=== PATIENT | male | born 1985 | race African-American/Black ===

== ENCOUNTER 2017-03-25 10:47 | Inpatient (IN) | payer OTHER ==
[~2017-03-25] VITALS: Ht 182.9 cm; Wt 93.3 kg
[2017-03-25] MEDS ORDERED: SODIUM CHLORIDE 0.9% 1,000ML IVBOLUS ONE (11:00)
[2017-03-25] MEDS ORDERED: PANTOPRAZOLE 40 MG IV IVPush ONE (11:00)
[2017-03-25] MEDS ORDERED: ONDANSETRON 2MG/ML, 2ML IVPush ONE (11:00)
[2017-03-25] MEDS ORDERED: SODIUM CHLORIDE FLUSH 10ML SYR IVF ONE (11:00)
[2017-03-25] MEDS ORDERED: LIDOCAINE-MPF 2% ,5ML ONE (11:23)
[2017-03-25] MEDS ORDERED: LORazepam 2 MG/ML, 1ML IVPush ONE (11:30)
[2017-03-25] MEDS ORDERED: LIDOCAINE 2%, 20ML INFIL ONE (11:30)
[2017-03-25] MEDS ORDERED: KETAMINE 10 MG/ML, 20ML ONE (11:46)
[2017-03-25] MEDS ORDERED: KETAMINE 10 MG/ML, 20ML IV ONE (12:00)
[2017-03-25] MEDS ORDERED: ONDANSETRON 2MG/ML, 2ML ONE (12:03)
[2017-03-25] MEDS ORDERED: PANTOPRAZOLE 40 MG IV ONE (12:03)
[2017-03-25 12:12] LABS: HEMATOCRIT 49.5 % (39.2-51.8); HEMOGLOBIN 16.4 g/dL (13.7-18.0); WHITE BLOOD COUNT 18.4 x10^3/uL (3.4-10)
[2017-03-25] MEDS ORDERED: LORazepam 2 MG/ML, 1ML ONE (12:20)
[2017-03-25 12:33] LABS: ASPARTATE AMINO TRANSFERASE 54 U/L (15-37); BLOOD UREA NITROGEN 30 mg/dL (7-18)
[2017-03-25] MEDS ORDERED: ONDANSETRON ODT 4 MG ONE (12:55)
[2017-03-25] MEDS ORDERED: ONDANSETRON ODT 4 MG PO ONE (13:00)
[2017-03-25] MEDS ORDERED: POTASSIUM CHLORIDE 40 MEQ in SODIUM CHLORIDE 0.9% 500 ML IV ONE (14:00)
[2017-03-25] MEDS ORDERED: ONDANSETRON 2MG/ML, 2ML IVPush PRN (15:00)
[2017-03-25] MEDS ORDERED: morphine SULFATE 10 MG/ML, 1ML IVPush PRN (15:00)
[2017-03-25 15:54] LABS: IS PT STATUS REG ER OR PRE ER? YES
[2017-03-25] MEDS ORDERED: PHARMACY MAY ADJ FOR RENAL FX MC PRN (16:30)
[2017-03-25 17:20] VITALS: BP 121/75
[2017-03-25] MEDS ORDERED: PANTOPRAZOLE 80 MG in SODIUM CHLORIDE 0.9% 100 ML IV SCH ×2 (18:00→20:30)
[2017-03-25] MEDS ORDERED: THIAMINE 100 MG in SODIUM CHLORIDE 0.9% 50 ML IV SCH ×2 (18:00→20:30)
[2017-03-25 20:00] VITALS: BP 131/75
[2017-03-25] MEDS: D5%-0.45NACL+KCL 40MEQ 1,000 ML IV SCH (21:37)
[2017-03-25 22:07] LABS: HEMATOCRIT 41.8 % (39.2-51.8); HEMOGLOBIN 13.9 g/dL (13.7-18.0)
[2017-03-25 22:14] LABS: IS PT STATUS REG ER OR PRE ER? NO
[2017-03-26 03:45] VITALS: BP 115/75
[2017-03-26] MEDS: D5%-0.45NACL+KCL 40MEQ 1,000 ML IV SCH ×3 (04:06→21:40)
[2017-03-26 04:28] LABS: BLOOD UREA NITROGEN 20 mg/dL (7-18)
[2017-03-26 04:43] LABS: ASPARTATE AMINO TRANSFERASE 37 U/L (15-37)
[2017-03-26 08:30] VITALS: BP 134/87
[2017-03-26 08:38] LABS: HEMATOCRIT 39.7 % (39.2-51.8); HEMOGLOBIN 13.3 g/dL (13.7-18.0); WHITE BLOOD COUNT 19.1 x10^3/uL (3.4-10)
[2017-03-26] MEDS: PANTOPROZOLE 40MG TABLET PO SCH ×2 (09:48→21:40)
[2017-03-26] MEDS: THIAMINE 100MG TABLET PO SCH (12:06)
[2017-03-26] MEDS: FOLIC ACID 1 MG TABLET PO SCH (12:06)
[2017-03-26] MEDS: AMOXICILLIN 500 MG CAPSULE PO SCH ×2 (12:07→21:39)
[2017-03-26] MEDS: CLARITHROMYCIN 500 MG TABLET PO SCH ×2 (12:07→21:40)
[2017-03-26 12:23] LABS: IS PT STATUS REG ER OR PRE ER? NO
[2017-03-26 14:00] VITALS: BP 107/67
[2017-03-26 16:16] LABS: DAU SCREEN DISCLAIMER
[2017-03-26 20:39] VITALS: BP 121/70
[2017-03-27 01:00] VITALS: BP 128/72
[2017-03-27 03:10] LABS: BLOOD UREA NITROGEN 10 mg/dL (7-18)
[2017-03-27 03:18] LABS: HEMATOCRIT 38.3 % (39.2-51.8); HEMOGLOBIN 12.5 g/dL (13.7-18.0); WHITE BLOOD COUNT 12.6 x10^3/uL (3.4-10)
[2017-03-27 07:02] VITALS: BP 121/75
[2017-03-27] MEDS: D5%-0.45NACL+KCL 40MEQ 1,000 ML IV SCH ×2 (08:19→15:56)
[2017-03-27] MEDS: CLARITHROMYCIN 500 MG TABLET PO SCH ×2 (08:19→21:18)
[2017-03-27] MEDS: THIAMINE 100MG TABLET PO SCH (08:19)
[2017-03-27] MEDS: AMOXICILLIN 500 MG CAPSULE PO SCH ×2 (08:19→21:19)
[2017-03-27] MEDS: FOLIC ACID 1 MG TABLET PO SCH (08:19)
[2017-03-27] MEDS: PANTOPROZOLE 40MG TABLET PO SCH ×2 (10:00→21:18)
[2017-03-27 12:37] VITALS: BP_SYST 130; BP_SYST 94; BP_DIAS 45; BP_DIAS 81
[2017-03-27] MEDS ORDERED: D5%-0.45NACL+KCL 40MEQ 1,000 ML IV SCH (20:00)
[2017-03-27] MEDS ORDERED: PHARMACY MAY ADJ FOR RENAL FX MC PRN (20:30)
[2017-03-27] MEDS ORDERED: ONDANSETRON 2MG/ML, 2ML IVPush PRN (20:30)
[2017-03-27] MEDS ORDERED: morphine SULFATE 10 MG/ML, 1ML IVPush PRN (20:30)
[2017-03-27 21:00] VITALS: BP 116/67
[2017-03-28 03:00] VITALS: BP 128/73
[2017-03-28 05:24] LABS: HEMATOCRIT 42.2 % (39.2-51.8); HEMOGLOBIN 13.8 g/dL (13.7-18.0); WHITE BLOOD COUNT 10.3 x10^3/uL (3.4-10)
[2017-03-28] MEDS ORDERED: CLAR500T PO (08:49)
[2017-03-28] MEDS ORDERED: PANT40TA5 PO (08:49)
[2017-03-28] MEDS ORDERED: AMOX-291 PO (08:49)
[2017-03-28] MEDS ORDERED: THIA100T6 PO (08:49)
[2017-03-28] MEDS ORDERED: FOLI-17 PO (08:49)
[2017-03-28] MEDS ORDERED: FOLIC ACID 1 MG TABLET PO SCH (09:00)
[2017-03-28] MEDS ORDERED: THIAMINE 100MG TABLET PO SCH (09:00)
[2017-03-28] MEDS: CLARITHROMYCIN 500 MG TABLET PO SCH (09:13)
[2017-03-28] MEDS: AMOXICILLIN 500 MG CAPSULE PO SCH (09:13)
[2017-03-28] MEDS: PANTOPROZOLE 40MG TABLET PO SCH (09:14)
[2017-03-28 09:16] VITALS: BP 108/72
== END 2017-03-28 13:00 | disposition home or self-care (01) | DRG 867 ==
LOC: ED 10:54 → EDIP 13:35 → 4WST 17:20 → 3NE 03-26 17:10
PROVIDERS: ADMIT Internal Medicine; ATTEND Internal Medicine
PROC: 02HV33Z Insertion of Infusion Device into Superior Vena Cava, Percutaneous Approach (ICD-10-PCS; principal; 2017-03-25)
PROC: B5181ZA Fluoroscopy of Superior Vena Cava using Low Osmolar Contrast, Guidance (ICD-10-PCS; 2017-03-25)
PROC: B548ZZA Ultrasonography of Superior Vena Cava, Guidance (ICD-10-PCS; 2017-03-25)
DX: B96.81 Helicobacter pylori [H. pylori] as the cause of diseases classified elsewhere (principal); N17.0 Acute kidney failure with tubular necrosis; K22.6 Gastro-esophageal laceration-hemorrhage syndrome; F11.23 Opioid dependence with withdrawal; E87.2 Acidosis; M62.82 Rhabdomyolysis; D72.829 Elevated white blood cell count, unspecified; D75.89 Other specified diseases of blood and blood-forming organs; E86.0 Dehydration; E87.6 Hypokalemia; F12.90 Cannabis use, unspecified, uncomplicated; F17.210 Nicotine dependence, cigarettes, uncomplicated
CPT/HCPCS: 36415; 36569; 70450; 71010; 76700; 76937; 77001; 80048; 80053; 80074; 80307; 81003; 82140; 82550; 83690; 83735; 84100; 84145; 84484; 85014; 85018; 85025; 85610; 85730; 86677; 86850; 86900; 87040; 87521; 93005; 93306; 96361; 96365; 96375; J2405; J3411; J3480; C1751; C9113; J2060; J7030; J7040

== ENCOUNTER 2017-09-29 10:58 | Emergency (ER) | payer MEDICAID, OTHER ==
[~2017-09-29] VITALS: Ht 188 cm; Wt 92.1 kg
[~2017-09-29 10:58] MED LIST: AMOX-291 PO; CLAR500T PO; FOLI-17 PO; PANT40TA5 PO; THIA100T6 PO
[2017-09-29 11:03] VITALS: BP 110/76
== END 2017-09-29 14:47 | disposition home or self-care (01) ==
LOC: ED 14:41
DX: S62.324A Displaced fracture of shaft of fourth metacarpal bone, right hand, initial encounter for closed fracture (principal); S62.316A Displaced fracture of base of fifth metacarpal bone, right hand, initial encounter for closed fracture; E87.6 Hypokalemia; X58.XXXA Exposure to other specified factors, initial encounter; Y93.89 Activity, other specified; Y92.89 Other specified places as the place of occurrence of the external cause; Y99.9 Unspecified external cause status
CPT/HCPCS: 29125; 99284

== ENCOUNTER 2018-02-12 11:14 | Emergency (ER) | payer MEDICAID ==
[~2018-02-12] VITALS: Ht 188 cm; Wt 91.2 kg
[2018-02-12 11:16] VITALS: BP 123/79
[2018-02-12] MEDS ORDERED: CEFTRIAXONE 250 MG IM ONE (12:00)
[2018-02-12] MEDS ORDERED: AZITHROMYCIN 500 MG TABLET PO ONE (12:00)
[2018-02-12] MEDS ORDERED: AZITHROMYCIN 500 MG TABLET ONE (12:09)
[2018-02-12] MEDS ORDERED: CEFTRIAXONE 250 MG ONE (12:09)
[2018-02-12 12:19] LABS: MICROSCOPIC AUTO
[2018-02-12 12:20] LABS: CULTURE INDICATED? YES
== END 2018-02-12 12:45 | disposition home or self-care (01) ==
LOC: ED 11:45
DX: R30.0 Dysuria (principal); A64 Unspecified sexually transmitted disease; R36.9 Urethral discharge, unspecified
CPT/HCPCS: 81001; 87086; 87491; 87591; 96372; 99284; J0696

== ENCOUNTER 2020-03-24 22:18 | Emergency (ER) | payer MEDICAID ==
[~2020-03-24] VITALS: Ht 188 cm; Wt 75.0 kg
[~2020-03-24 22:18] MED LIST changes: +CLAR-14 PO; -CLAR500T PO; -THIA100T6 PO; +THIA100T67 PO
[2020-03-24 23:12] LABS: BASOPHILS # (AUTO) 0.01 x10^3/uL (0-0.1); BASOPHILS % (AUTO) 0 % (0-1); EOSINOPHILS # (AUTO) 0.01 x10^3/uL (0-0.4); EOSINOPHILS % (AUTO) 0 % (1-7); LYMPHOCYTES % (AUTO) 18 % (22-44); MD NO; MEAN CORPUSCULAR HEMOGLOBIN 24.1 pg (27.5-34.5); MEAN CORPUSCULAR HGB CONC 32.1 g/dL (33.2-36.2); MEAN CORPUSCULAR VOLUME 74.9 fL (81-97); MEAN PLATELET VOLUME 7.2 fL (7.4-10.4); MONOCYTES % (AUTO) 4 % (2-9); NEUTROPHILS # (AUTO) 7.01 x10^3/uL (1.8-6.8); NEUTROPHILS % (AUTO) 78 % (42-75); PLATELET COUNT 819 x10^3/uL (130-400); RED BLOOD COUNT 4.63 x10^6/uL (4.38-5.82); RED CELL DISTRIBUTION WIDTH 17.9 % (9.4-14.8)
[2020-03-24 23:13] LABS: ALANINE AMINOTRANSFERASE 18 U/L (12-78); ALBUMIN 3.5 g/dL (3.4-5.0); ANION GAP 6 mmol/L (5-15); CALCIUM 9.3 mg/dL (8.5-10.1); CHLORIDE 95 mmol/L (98-107); CREATININE 0.92 mg/dL (0.7-1.3)
[2020-03-24 23:15] LABS: ALKALINE PHOSPHATASE 72 U/L (45-117); BILIRUBIN,TOTAL 0.4 mg/dL (0.2-1.0)
[2020-03-24] MEDS ORDERED: ONDANSETRON 2MG/ML, 2ML ONE (23:29)
[2020-03-24] MEDS ORDERED: PANTOPRAZOLE 80 MG in SODIUM CHLORIDE 0.9% 50 ML IV ONE (23:30)
[2020-03-24] MEDS ORDERED: SODIUM CHLORIDE 0.9% 1,000ML IVBOLUS ONE (23:30)
[2020-03-24] MEDS ORDERED: ONDANSETRON 2MG/ML, 2ML IVPush ONE (23:30)
[2020-03-25 00:09] LABS: INTERNATIONAL NORMALIZED RATIO 1.08 (0.93-1.1); PROTHROMBIN TIME 11.1 Seconds (9.6-11.5)
[2020-03-25 01:09] VITALS: BP 132/64
== END 2020-03-25 01:28 | disposition home or self-care (01) ==
LOC: ED 03-25 01:04
DX: F15.129 Other stimulant abuse with intoxication, unspecified (principal); F11.129 Opioid abuse with intoxication, unspecified; K92.0 Hematemesis; D62 Acute posthemorrhagic anemia; K59.00 Constipation, unspecified; Z72.9 Problem related to lifestyle, unspecified
CPT/HCPCS: 36415; 80053; 83690; 85025; 85610; 96374; 96375; 99284; C9113; J2405; J7030

== ENCOUNTER 2020-03-25 14:05 | Inpatient (IN) | payer MEDICAID ==
[~2020-03-25] VITALS: Ht 188 cm; Wt 69.4 kg
[2020-03-25] MEDS ORDERED: NALOXONE 0.4 MG/ML, 1ML IVPush ONE (14:30)
[2020-03-25] MEDS ORDERED: SODIUM CHLORIDE 0.9% 1,000ML IVBOLUS ONE (14:30)
[2020-03-25] MEDS ORDERED: SODIUM CHLORIDE FLUSH 10ML SYR IVF ONE (14:30)
[2020-03-25] MEDS ORDERED: NALOXONE 0.4 MG/ML, 1ML ONE (14:34)
[2020-03-25 14:37] LABS: BASOPHILS # (AUTO) 0.05 x10^3/uL (0-0.1); BASOPHILS % (AUTO) 0 % (0-1); EOSINOPHILS # (AUTO) 0.05 x10^3/uL (0-0.4); EOSINOPHILS % (AUTO) 0 % (1-7); LYMPHOCYTES # (AUTO) 4.05 x10^3/uL (1-3.4); LYMPHOCYTES % (AUTO) 32 % (22-44); MD NO; MEAN CORPUSCULAR HGB CONC 31.5 g/dL (33.2-36.2); MEAN CORPUSCULAR VOLUME 76.2 fL (81-97); MEAN PLATELET VOLUME 6.4 fL (7.4-10.4); MONOCYTES # (AUTO) 1.04 x10^3/uL (0.2-0.8); MONOCYTES % (AUTO) 8 % (2-9); NEUTROPHILS # (AUTO) 7.66 x10^3/uL (1.8-6.8); NEUTROPHILS % (AUTO) 60 % (42-75); PLATELET COUNT 750 x10^3/uL (130-400); RED BLOOD COUNT 3.32 x10^6/uL (4.38-5.82); RED CELL DISTRIBUTION WIDTH 18.3 % (9.4-14.8)
[2020-03-25 14:40] LABS: ALANINE AMINOTRANSFERASE 17 U/L (12-78); ALBUMIN 2.8 g/dL (3.4-5.0); ANION GAP 12 mmol/L (5-15); CALCIUM 8.1 mg/dL (8.5-10.1); CHLORIDE 96 mmol/L (98-107); CREATININE 1.87 mg/dL (0.7-1.3)
[2020-03-25 14:43] LABS: ALKALINE PHOSPHATASE 55 U/L (45-117); BILIRUBIN,TOTAL 0.3 mg/dL (0.2-1.0); TOTAL PROTEIN 7.7 g/dL (6.4-8.2)
[2020-03-25] MEDS ORDERED: LACTATED RINGERS 1,000 ML IVBOLUS ONE (15:30)
[2020-03-25] MEDS ORDERED: LORazepam 2 MG/ML, 1ML IVPush PRN (17:00)
[2020-03-25] MEDS ORDERED: DOCUSATE 100 MG CAPSULE PO PRN (17:00)
[2020-03-25] MEDS: SUCRALFATE 1 GM/10 ML UDC PO SCH ×2 (17:00→21:08)
[2020-03-25] MEDS ORDERED: PROMETHAZINE 25 MG/ML, 1ML IM PRN (17:00)
[2020-03-25] MEDS ORDERED: ACETAMINOPHEN 325 MG TABLET PO PRN (17:00)
[2020-03-25] MEDS ORDERED: ONDANSETRON 2MG/ML, 2ML IVPush PRN (17:00)
[2020-03-25] MEDS ORDERED: POLYETHYLENE GLYCOL 17 GM PACKET PO PRN (17:00)
[2020-03-25] MEDS ORDERED: NALOXONE 0.4 MG/ML, 1ML IVPush PRN (17:00)
[2020-03-25] MEDS ORDERED: NICOTINE 21 MG/24 HR PATCH.TD24 TD SCH (17:00)
[2020-03-25] MEDS ORDERED: ONDANSETRON ODT 4 MG PO PRN (17:00)
[2020-03-25] MEDS ORDERED: PANTOPRAZOLE 40 MG IV ONE (17:08)
[2020-03-25] MEDS: PANTOPRAZOLE 40 MG IV IVPush SCH ×2 (17:09→20:57)
[2020-03-25] MEDS: LACTATED RINGERS 1,000 ML IV SCH ×2 (17:09→18:40)
[2020-03-25 17:21] LABS: % IRON SATURATION 5 % (20-55); IRON LEVEL 17 mcg/dL (65-175); TOTAL IRON BINDING CAPACITY 339 mcg/dL (250-450)
[2020-03-25 17:30] LABS: INTERNATIONAL NORMALIZED RATIO 1.12 (0.93-1.1); PROTHROMBIN TIME 11.6 Seconds (9.6-11.5)
[2020-03-25] MEDS ORDERED: POTASSIUM CHLORIDE 20 MEQ TAB.ER.PRT ONE (18:31)
[2020-03-25] MEDS ORDERED: SUCRALFATE 1 GM/10 ML UDC ONE (18:31)
[2020-03-25 18:34] VITALS: BP 119/89
[2020-03-25] MEDS: POTASSIUM CHLORIDE 20 MEQ TAB.ER.PRT PO SCH (18:40)
[2020-03-26 01:42] VITALS: BP 112/83
[2020-03-26 06:33] LABS: ALANINE AMINOTRANSFERASE 11 U/L (12-78); ALBUMIN 2.3 g/dL (3.4-5.0); ANION GAP 5 mmol/L (5-15); CALCIUM 7.2 mg/dL (8.5-10.1); CHLORIDE 100 mmol/L (98-107); CREATININE 0.77 mg/dL (0.7-1.3); IRON LEVEL 14 mcg/dL (65-175)
[2020-03-26 06:36] LABS: % IRON SATURATION 5 % (20-55); ALKALINE PHOSPHATASE 42 U/L (45-117); BILIRUBIN,TOTAL 0.2 mg/dL (0.2-1.0); TOTAL IRON BINDING CAPACITY 257 mcg/dL (250-450); TOTAL PROTEIN 6.3 g/dL (6.4-8.2)
[2020-03-26 06:44] LABS: AMPHETAMINE SCREEN, URINE Positive (Negative); BARBITURATE SCREEN, URINE Negative (Negative); BENZODIAZEPINE SCREEN, URINE Negative (Negative); CANNABINOID SCREEN, URINE Positive (Negative); COCAINE SCREEN, URINE Negative (Negative); METHADONE SCREEN, URINE Negative (Negative); OPIATE SCREEN, URINE Positive (Negative)
[2020-03-26 07:48] VITALS: BP 91/53
[2020-03-26 07:57] LABS: MEAN CORPUSCULAR HEMOGLOBIN 23.7 pg (27.5-34.5); MEAN CORPUSCULAR HGB CONC 30.7 g/dL (33.2-36.2); MEAN CORPUSCULAR VOLUME 77.1 fL (81-97); MEAN PLATELET VOLUME 5.9 fL (7.4-10.4); PLATELET COUNT 510 x10^3/uL (130-400); RED BLOOD COUNT 2.35 x10^6/uL (4.38-5.82)
[2020-03-26] MEDS: SUCRALFATE 1 GM/10 ML UDC PO SCH (08:00)
[2020-03-26] MEDS: PANTOPRAZOLE 40 MG IV IVPush SCH (08:00)
[2020-03-26] MEDS: POTASSIUM CHLORIDE 20 MEQ TAB.ER.PRT PO SCH (08:00)
[2020-03-26] MEDS: LACTATED RINGERS 1,000 ML IV SCH (08:01)
[2020-03-26 08:22] LABS: BASOPHILS # (AUTO) 0.03 x10^3/uL (0-0.1); BASOPHILS % (AUTO) 1 % (0-1); EOSINOPHILS # (AUTO) 0.13 x10^3/uL (0-0.4); EOSINOPHILS % (AUTO) 2 % (1-7); LYMPHOCYTES # (AUTO) 1.77 x10^3/uL (1-3.4); LYMPHOCYTES % (AUTO) 25 % (22-44); MD MORPH REVIEW ONLY; MONOCYTES % (AUTO) 6 % (2-9); NEUTROPHILS # (AUTO) 4.87 x10^3/uL (1.8-6.8); NEUTROPHILS % (AUTO) 68 % (42-75)
[2020-03-26 08:23] LABS: ANISOCYTOSIS 1+; HYPOCHROMIA 2+; MICROCYTOSIS 1+; OVALOCYTES 1+; TEAR DROPS 1+
[2020-03-26 08:24] LABS: <PLATELET ESTIMATE> INCREASED; <PLT MORPHOLOGY> NORMAL PLT MORPH
[2020-03-26] MEDS ORDERED: IRON SUCROSE COMPLEX 100MG/5ML IV SCH (09:00)
[2020-03-26] MEDS ORDERED: MIDAZOLAM 1 MG/ML, 2ML ONE (09:16)
[2020-03-26] MEDS ORDERED: FENTANYL PF 100 MCG/2ML ONE (09:17)
== END 2020-03-26 09:28 | disposition left against medical advice (07) | DRG 682 ==
LOC: ED 15:33 → EDIP 16:07 → 4WST 18:23
PROVIDERS: ADMIT Internal Medicine; ATTEND Family Medicine
DX: N17.0 Acute kidney failure with tubular necrosis (principal); J96.01 Acute respiratory failure with hypoxia; F11.23 Opioid dependence with withdrawal; K92.0 Hematemesis; E86.0 Dehydration; E86.1 Hypovolemia; E87.6 Hypokalemia; F17.210 Nicotine dependence, cigarettes, uncomplicated; D72.829 Elevated white blood cell count, unspecified; D50.9 Iron deficiency anemia, unspecified; I95.9 Hypotension, unspecified; R55 Syncope and collapse; Z53.29 Procedure and treatment not carried out because of patient's decision for other reasons; F19.10 Other psychoactive substance abuse, uncomplicated
CPT/HCPCS: 36415; 71045; 80053; 80307; 82728; 83540; 83550; 83735; 85025; 85610; 93005; G0378; J2250; J2310; J3010; C9113; J7030; J7120

== ENCOUNTER 2020-08-28 12:53 | Inpatient (IN) | payer MEDICAID ==
[~2020-08-28] VITALS: Ht 182.9 cm; Wt 74.6 kg
[~2020-08-28 12:53] MED LIST changes: -PANT40TA5 PO; +PANT40TA6 PO
[2020-08-28] MEDS ORDERED: DEXTROSE 50%, 50ML SYRINGE ONE ×2 (13:17→13:26)
[2020-08-28] MEDS ORDERED: SODIUM CHLORIDE 0.9% 1,000ML IVBOLUS ONE ×2 (13:30)
[2020-08-28] MEDS ORDERED: SODIUM CHLORIDE FLUSH 10ML SYR IVF ONE (13:30)
[2020-08-28] MEDS ORDERED: DEXTROSE 50%, 50ML SYRINGE IVPush ONE (13:30)
[2020-08-28] MEDS ORDERED: DEXTROSE 10% 500 ML IV SCH ×3 (13:30→14:30)
[2020-08-28] MEDS ORDERED: ONDANSETRON 2MG/ML, 2ML IVPush ONE (13:30)
[2020-08-28] MEDS ORDERED: OMNIPAQUE 350 MG/ML, 100ML BOTTLE ONE (13:53)
--- NOTE | 2020-08-28 13:55 | NUR ---
LATE ENTRY D/T PT CARE: BIB [facility], PT FOUND ALTERED AT HOME. FSBG 29 PT GIVEN 200CC D10. FSBG 89 PER EMS ON ARRIVAL. PT REPORTED USING HEROIN THIS MORNING, FREQUENT DRUG USE. PT ARRIVES HYPOTENSIVE 80/30S HR 148. PT A0 X2, LETHARGIC FSBG ON GLUCOMETER READS <10 X2. PT GIVEN AMP D50, 1LNS BOLUS HUNG, ERMD IN RM. PT WITH TENDER ABDOMEN, STAT CT ORDERED, 250CC D10 HUNG PER ERMD PRIOR TO PT LEAVING FOR IMAGING. PT WITH REPEAT FSBG 220, BP RECHECK S/P 1 L BOLUS 105/55. PT TO CT AT THIS TIME
[2020-08-28] MEDS ORDERED: METRONIDAZOLE PMX 500MG/100ML 100 ML IV ONE (14:00)
[2020-08-28] MEDS ORDERED: PIPERACILLIN/TAZO/PMX 4.5GM 100 ML IVPB ONE (14:00)
[2020-08-28] MEDS ORDERED: LACTATED RINGERS 1,000 ML IVBOLUS ONE (14:00)
--- NOTE | 2020-08-28 14:03 | NUR ---
bedside report given from dr silva. Dr silva at bedside updating patient.
--- NOTE | 2020-08-28 14:13 | NUR ---
Dr silva in room. Hold blood per dr Silva
--- NOTE | 2020-08-28 14:15 | NUR ---
lab in room
--- NOTE | 2020-08-28 14:25 | NUR ---
DR GARVIN IN ROOM.
--- NOTE | 2020-08-28 14:25 | NUR ---
DR PUENTE IN ROOM
[2020-08-28] MEDS ORDERED: VANCOMYCIN PER PHARMACY MC PRN (14:30)
[2020-08-28] MEDS ORDERED: OXYcodone IR 5MG TABLET PO PRN (14:30)
[2020-08-28] MEDS ORDERED: BISACODYL 10 MG SUPP PR PRN (14:30)
[2020-08-28] MEDS ORDERED: morphine SULFATE 10 MG/ML, 1ML IVPush PRN (14:30)
[2020-08-28] MEDS ORDERED: POLYETHYLENE GLYCOL 17 GM PACKET PO PRN (14:30)
[2020-08-28] MEDS ORDERED: LORazepam 2 MG/ML, 1ML IVPush PRN (14:30)
--- NOTE | 2020-08-28 14:31 | NUR ---
DR PUENTE PLACED RIGHT IJ CENTRAL LINE. STERILE PROCEDURE FOLLOWED.
--- NOTE | 2020-08-28 14:49 | NUR ---
DR NAGY HAS SEEN PATIENT. OKAY TO USE CENTRAL LINE PER DR PUENTE. BOTH BLOOD CULTURES HAVE BEEN DRAWN. MOTHER AT BEDSIDE. PT IS A&O X4. RN PEDIATRIC ICU KIANA IN ROOM. CALL LIGHT IN PLACE. WILL CONTINUE TO MONITOR.
[2020-08-28] MEDS: NOREPINEPHRINE 8 MG in SODIUM CHLORIDE 0.9% 242 ML IV PRN ×4 (14:51→21:44)
[2020-08-28 14:55] LABS: PH, VENOUS 7.283 pH (7.320-7.420)
--- NOTE | 2020-08-28 15:05 | NUR ---
REPORT HAS BEEN CALLED INTO THE OR. MOTHER AT BEDSIDE. PT IS A&O X4. WILL CONTINUE TO MONITOR.
[2020-08-28 15:06] LABS: ALANINE AMINOTRANSFERASE 21 U/L (12-78); ALBUMIN 1.6 g/dL (3.4-5.0); ANION GAP 17 mmol/L (5-15); CALCIUM 6.9 mg/dL (8.5-10.1); CHLORIDE 95 mmol/L (98-107)
[2020-08-28 15:09] LABS: ALKALINE PHOSPHATASE 36 U/L (45-117); BILIRUBIN,TOTAL 0.2 mg/dL (0.2-1.0); TOTAL PROTEIN 6.3 g/dL (6.4-8.2)
[2020-08-28] MEDS ORDERED: ONDANSETRON 2MG/ML, 2ML ONE (15:13)
--- NOTE | 2020-08-28 15:22 | NUR ---
DR PUENTE TO BEDSIDE. AWARE OF VS. WAITING NEW ORDERS. DR GARVIN CALLED. NO ANSWER.
--- NOTE | 2020-08-28 15:23 | NUR ---
PER DR PUENTE HOLD BLOOD
[2020-08-28] MEDS ORDERED: MIDAZOLAM 1 MG/ML, 2ML ONE (15:24)
[2020-08-28] MEDS ORDERED: FENTANYL PF 250 MCG/5ML ONE (15:25)
[2020-08-28 15:28] LABS: MEAN CORPUSCULAR HEMOGLOBIN 15.5 pg (27.5-34.5); MEAN PLATELET VOLUME 6.9 fL (7.4-10.4); RED BLOOD COUNT 2.82 x10^6/uL (4.38-5.82); RED CELL DISTRIBUTION WIDTH 20.3 % (9.4-14.8)
[2020-08-28] MEDS ORDERED: PHENYLEPHRINE 50 MG in SODIUM CHLORIDE 0.9% 245 ML IV PRN (15:30)
[2020-08-28 15:31] LABS: MEAN CORPUSCULAR HGB CONC 28.7 g/dL (33.2-36.2)
[2020-08-28 15:32] LABS: MD YES; PLATELET COUNT 1081 x10^3/uL (130-400)
--- NOTE | 2020-08-28 15:40 | NUR ---
DR PUENTE AND DR BARRETT TO BEDSIDE. PROVIDERS WANT PT TO OR RIGHT AWAY. BLOOD TO BE GIVEN THERE PER DR BASHIR. BLOOD CONSENT SIGNED.
--- NOTE | 2020-08-28 15:46 | NUR ---
BEDSIDE REPORT GIVEN TO [employer]SE HELPER. PER DR PUENTE PROVIDER WANTS DEXTROSE RUNNING. PRIMARY RN AWARE PT NEEDS FLAGYL. PT WENT TO OR PER DR BARRETT.
[2020-08-28] MEDS ORDERED: ALBUMIN HUMAN 5% 500 ML ONE (15:56)
[2020-08-28 16:22] LABS: INTERNATIONAL NORMALIZED RATIO 1.32 (0.93-1.1)
[2020-08-28] MEDS ORDERED: PROPOFOL 100 ML IV ONE (17:20)
[2020-08-28] MEDS ORDERED: PHARMACOKINETIC MONITORING MC PRN (17:30)
[2020-08-28] MEDS ORDERED: PHARMACOKINETIC CONSULTATION MC ONE (17:30)
[2020-08-28] MEDS: D5%-0.9% NACL 1,000 ML IV SCH (17:47)
[2020-08-28] MEDS: MICAFUNGIN 100 MG in SODIUM CHLORIDE 0.9% 100 ML IV SCH (17:47)
[2020-08-28] MEDS: HEPARIN 5,000 UNITS/ML, 1ML SQ SCH (17:47)
[2020-08-28 18:12] LABS: BANDS%(MANUAL) 41 % (0-7); LYMPH#(MANUAL) 1.23 x10^3/uL (1-3.4); LYMPHS% (MANUAL) 22 % (22-44); MONOS#(MANUAL) 0.17 x10^3/uL (0.3-2.7); MONOS% (MANUAL) 3 % (2-9); SEGS% (MANUAL) 34 % (42-75)
[2020-08-28 18:15] LABS: ANISOCYTOSIS 2+; MICROCYTOSIS 2+
[2020-08-28 18:16] LABS: HYPOCHROMIA 2+; POLYCHROMASIA 1+
[2020-08-28 18:17] LABS: OVALOCYTES 1+; TARGET CELLS 1+
[2020-08-28 18:18] LABS: TEAR DROPS 1+
[2020-08-28 18:19] LABS: <PLATELET ESTIMATE> INCREASED; <PLT MORPHOLOGY> NORMAL PLT MORPH
[2020-08-28 18:26] VITALS: BP 93/68
[2020-08-28] MEDS ORDERED: VANCOMYCIN 1,400 MG in SODIUM CHLORIDE 0.9% 250 ML IV ONE (18:30)
[2020-08-28] MEDS ORDERED: THIAMINE 200 MG in SODIUM CHLORIDE 0.9% 50 ML IV ONE (19:00)
[2020-08-28] MEDS ORDERED: DEXTROSE 5% IV ONE (19:00)
[2020-08-28] MEDS ORDERED: THIAMINE IV ONE (19:00)
[2020-08-28] MEDS ORDERED: CYANOCOBALAMIN 1,000 MCG/ML, 1ML IM ONE (19:00)
[2020-08-28] MEDS ORDERED: FOLIC ACID IV ONE (19:00)
[2020-08-28] MEDS: PIPERACILLIN/TAZO/PMX 3.375GM 50 ML IV SCH (19:16)
[2020-08-28 19:39] LABS: % IRON SATURATION 3 % (20-55); IRON LEVEL 6 mcg/dL (65-175); TOTAL IRON BINDING CAPACITY 218 mcg/dL (250-450)
[2020-08-28 19:47] VITALS: BP 118/73
[2020-08-28] MEDS: PANTOPRAZOLE 40 MG IV IVPush SCH (20:24)
[2020-08-28 20:36] VITALS: BP 121/90
[2020-08-28] MEDS ORDERED: FAMOTIDINE 20 MG/2 ML IVPush SCH (21:00)
[2020-08-28] MEDS: FENTANYL PF 1,000 MCG in SODIUM CHLORIDE 0.9% 80 ML IV PRN (21:44)
[2020-08-28] MEDS ORDERED: PHYTONADIONE 10 MG/ML, 1ML SQ ONE (23:00)
[2020-08-28 23:03] VITALS: BP 110/75
[2020-08-28 23:42] VITALS: BP 97/64
[2020-08-29 00:54] VITALS: BP 103/71
[2020-08-29 01:29] LABS: ANION GAP 8 mmol/L (5-15); CALCIUM 6.8 mg/dL (8.5-10.1); CHLORIDE 104 mmol/L (98-107); CREATININE 3.03 mg/dL (0.7-1.3)
[2020-08-29] MEDS: HEPARIN 5,000 UNITS/ML, 1ML SQ SCH ×3 (01:38→17:08)
[2020-08-29 01:54] VITALS: BP 116/71
[2020-08-29] MEDS: D5%-0.9% NACL 1,000 ML IV SCH ×4 (02:33→22:50)
[2020-08-29] MEDS: NOREPINEPHRINE 8 MG in SODIUM CHLORIDE 0.9% 242 ML IV PRN ×2 (03:27→10:21)
[2020-08-29] MEDS: PROPOFOL 100 ML IV PRN ×2 (03:28→10:20)
[2020-08-29] MEDS: PIPERACILLIN/TAZO/PMX 3.375GM 50 ML IV SCH ×4 (05:05→22:51)
[2020-08-29 05:14] LABS: ALANINE AMINOTRANSFERASE 60 U/L (12-78); ALBUMIN 1.7 g/dL (3.4-5.0); ANION GAP 8 mmol/L (5-15); CALCIUM 6.9 mg/dL (8.5-10.1); CHLORIDE 105 mmol/L (98-107); CREATININE 2.78 mg/dL (0.7-1.3)
[2020-08-29 05:16] LABS: ALKALINE PHOSPHATASE 45 U/L (45-117); BILIRUBIN,TOTAL 0.7 mg/dL (0.2-1.0); MEAN CORPUSCULAR HEMOGLOBIN 22.9 pg (27.5-34.5); MEAN CORPUSCULAR HGB CONC 33.9 g/dL (33.2-36.2); MEAN PLATELET VOLUME 8.3 fL (7.4-10.4); PLATELET COUNT 635 x10^3/uL (130-400); RED BLOOD COUNT 4.82 x10^6/uL (4.38-5.82); RED CELL DISTRIBUTION WIDTH 32.2 % (9.4-14.8); TOTAL PROTEIN 6.2 g/dL (6.4-8.2); VANCOMYCIN,RANDOM 16.6 mcg/mL
[2020-08-29 05:58] LABS: MD YES
[2020-08-29 06:03] LABS: BANDS%(MANUAL) 39 % (0-7); EOS#(MANUAL) 0.08 x10^3/uL (0.0-0.4); EOS% (MANUAL) 1 % (1-7); LYMPH#(MANUAL) 0.46 x10^3/uL (1-3.4); LYMPHS% (MANUAL) 6 % (22-44); METAMYELOCYTES# (MANUAL) 0.23 x10^3/uL (0-0); METAMYELOCYTES% (MANUAL) 3 % (0-1); MONOS#(MANUAL) 0.15 x10^3/uL (0.3-2.7); MONOS% (MANUAL) 2 % (2-9); SEG#(MANUAL) 3.77 x10^3/uL (1.8-6.8); SEGS% (MANUAL) 49 % (42-75)
[2020-08-29 06:04] LABS: ANISOCYTOSIS 3+; MICROCYTOSIS 2+
[2020-08-29 06:05] LABS: ECHINOCYTES 1+; HYPOCHROMIA 2+; OVALOCYTES 1+; TARGET CELLS 1+
[2020-08-29 06:06] LABS: TEAR DROPS 1+
[2020-08-29 06:07] LABS: <PLATELET ESTIMATE> INCREASED; <PLT MORPHOLOGY> NORMAL PLT MORPH; PMNS WITH VACUOLES 1+
[2020-08-29 06:18] LABS: MICROSCOPIC INDICATED
[2020-08-29] MEDS: SENNA/DOCUSATE TABLET PO SCH (09:00)
[2020-08-29] MEDS ORDERED: VANCOMYCIN 1,400 MG in SODIUM CHLORIDE 0.9% 250 ML IV ONE (09:00)
[2020-08-29] MEDS: PANTOPRAZOLE 40 MG IV IVPush SCH (09:04)
[2020-08-29] MEDS: THIAMINE 200 MG in SODIUM CHLORIDE 0.9% 50 ML IV SCH (09:05)
[2020-08-29] MEDS: FENTANYL PF 1,000 MCG in SODIUM CHLORIDE 0.9% 80 ML IV PRN ×2 (09:45→16:25)
[2020-08-29] MEDS: MICAFUNGIN 100 MG in SODIUM CHLORIDE 0.9% 100 ML IV SCH (19:24)
[2020-08-29] MEDS ORDERED: FENTANYL PF 2,500 MCG in SODIUM CHLORIDE 0.9% 200 ML IV PRN (23:00)
[2020-08-30] MEDS ORDERED: VANCOMYCIN 1,400 MG in SODIUM CHLORIDE 0.9% 250 ML IV ONE
[2020-08-30] MEDS: HEPARIN 5,000 UNITS/ML, 1ML SQ SCH ×3 (01:46→16:59)
[2020-08-30] MEDS: PROPOFOL 100 ML IV PRN (01:51)
[2020-08-30 03:27] LABS: MEAN CORPUSCULAR HEMOGLOBIN 22.5 pg (27.5-34.5); MEAN CORPUSCULAR HGB CONC 32.9 g/dL (33.2-36.2); MEAN PLATELET VOLUME 8.2 fL (7.4-10.4); PLATELET COUNT 388 x10^3/uL (130-400); RED BLOOD COUNT 3.41 x10^6/uL (4.38-5.82); RED CELL DISTRIBUTION WIDTH 32.1 % (9.4-14.8)
[2020-08-30 03:38] LABS: ANION GAP 5 mmol/L (5-15); CALCIUM 7.2 mg/dL (8.5-10.1); CHLORIDE 114 mmol/L (98-107); CREATININE 1.63 mg/dL (0.7-1.3)
[2020-08-30 03:40] LABS: BILIRUBIN,TOTAL 0.5 mg/dL (0.2-1.0)
[2020-08-30 03:51] LABS: MD YES
[2020-08-30 03:55] LABS: BAND#(MANUAL) 1.59 x10^3/uL; BANDS%(MANUAL) 15 % (0-7); EOS#(MANUAL) 0.11 x10^3/uL (0.0-0.4); EOS% (MANUAL) 1 % (1-7); LYMPH#(MANUAL) 1.17 x10^3/uL (1-3.4); LYMPHS% (MANUAL) 11 % (22-44); SEG#(MANUAL) 7.74 x10^3/uL (1.8-6.8); SEGS% (MANUAL) 73 % (42-75)
[2020-08-30 03:57] LABS: ANISOCYTOSIS 3+; HYPOCHROMIA 2+; MICROCYTOSIS 2+
[2020-08-30 03:59] LABS: OVALOCYTES 1+
[2020-08-30 04:00] LABS: ECHINOCYTES 1+; TARGET CELLS 1+; TEAR DROPS 1+
[2020-08-30 04:01] LABS: <PLATELET ESTIMATE> ADEQUATE; <PLT MORPHOLOGY> NORMAL PLT MORPH
[2020-08-30] MEDS: PIPERACILLIN/TAZO/PMX 3.375GM 50 ML IV SCH ×4 (04:57→23:11)
[2020-08-30] MEDS: D5%-0.9% NACL 1,000 ML IV SCH ×3 (04:59→21:57)
[2020-08-30 05:31] VITALS: BP 99/53
[2020-08-30 05:52] VITALS: BP 100/55
[2020-08-30 06:38] VITALS: BP 106/64
[2020-08-30] MEDS ORDERED: POTASSIUM CHLORIDE 40 MEQ in SODIUM CHLORIDE 0.9% 100 ML IV ONE (07:00)
[2020-08-30] MEDS ORDERED: MIDAZOLAM 1 MG/ML, 2ML ONE (07:14)
[2020-08-30] MEDS ORDERED: FENTANYL PF 250 MCG/5ML ONE (07:14)
[2020-08-30] MEDS ORDERED: ROCURONIUM 10 MG/ML,10ML ONE (07:30)
[2020-08-30] MEDS: SENNA/DOCUSATE TABLET PO SCH (09:00)
[2020-08-30] MEDS: THIAMINE 200 MG in SODIUM CHLORIDE 0.9% 50 ML IV SCH (09:02)
[2020-08-30] MEDS: PANTOPRAZOLE 40 MG IV IVPush SCH (10:09)
[2020-08-30] MEDS: VANCOMYCIN 1,400 MG in SODIUM CHLORIDE 0.9% 250 ML IV SCH (12:32)
[2020-08-30] MEDS ORDERED: METHADONE 10 MG TABLET PO PRN (13:30)
[2020-08-30] MEDS ORDERED: METHADONE 5 MG TABLET PO PRN (13:30)
[2020-08-30] MEDS ORDERED: morphine SULFATE 10 MG/ML, 1ML IVPush PRN (13:30)
[2020-08-30] MEDS ORDERED: IBUPROFEN 600 MG TABLET PO PRN (14:00)
[2020-08-30] MEDS ORDERED: ACETAMINOPHEN 500 MG TABLET PO PRN (14:00)
[2020-08-30] MEDS: METHADONE 10 MG TABLET PO SCH ×2 (14:03→20:48)
[2020-08-30] MEDS: MICAFUNGIN 100 MG in SODIUM CHLORIDE 0.9% 100 ML IV SCH (16:59)
[2020-08-30] MEDS: GABAPENTIN 300 MG CAPSULE PO SCH (20:48)
[2020-08-31] MEDS: VANCOMYCIN 1,400 MG in SODIUM CHLORIDE 0.9% 250 ML IV SCH (00:14)
[2020-08-31] MEDS: METHADONE 10 MG TABLET PO SCH ×4 (02:37→22:02)
[2020-08-31] MEDS: HEPARIN 5,000 UNITS/ML, 1ML SQ SCH ×3 (02:37→17:32)
[2020-08-31 03:56] LABS: BASOPHILS % (AUTO) 0 % (0-1); EOSINOPHILS % (AUTO) 0 % (1-7); LYMPHOCYTES % (AUTO) 9 % (22-44); MEAN CORPUSCULAR HEMOGLOBIN 22.9 pg (27.5-34.5); MEAN CORPUSCULAR HGB CONC 32.2 g/dL (33.2-36.2); MEAN PLATELET VOLUME 8.2 fL (7.4-10.4); MONOCYTES % (AUTO) 3 % (2-9); NEUTROPHILS % (AUTO) 88 % (42-75); PLATELET COUNT 337 x10^3/uL (130-400); RED BLOOD COUNT 3.75 x10^6/uL (4.38-5.82); RED CELL DISTRIBUTION WIDTH 31.5 % (9.4-14.8)
[2020-08-31 03:58] LABS: ANION GAP 4 mmol/L (5-15); BILIRUBIN,TOTAL 0.5 mg/dL (0.2-1.0); CALCIUM 7.5 mg/dL (8.5-10.1); CHLORIDE 116 mmol/L (98-107); CREATININE 1.05 mg/dL (0.7-1.3)
[2020-08-31] MEDS: PIPERACILLIN/TAZO/PMX 3.375GM 50 ML IV SCH ×4 (04:54→23:28)
[2020-08-31 05:50] LABS: MD SCAN
[2020-08-31] MEDS ORDERED: POTASSIUM CHLORIDE 40 MEQ in SODIUM CHLORIDE 0.9% 100 ML IV ONE (06:30)
[2020-08-31] MEDS: SENNA/DOCUSATE TABLET PO SCH (09:00)
[2020-08-31] MEDS: GABAPENTIN 300 MG CAPSULE PO SCH (09:27)
[2020-08-31] MEDS: THIAMINE 200 MG in SODIUM CHLORIDE 0.9% 50 ML IV SCH (09:27)
[2020-08-31] MEDS ORDERED: OMNIPAQUE 350 MG/ML, 150 ML BOTTLE ONE (14:01)
[2020-08-31] MEDS ORDERED: OMNIPAQUE 350 MG/ML, 100ML BOTTLE ONE (14:01)
[2020-08-31] MEDS ORDERED: POTASSIUM CHLORIDE 40 MEQ in D5%-0.9% NACL 1,000 ML IV SCH (14:30)
[2020-08-31 15:02] VITALS: BP 129/79
[2020-08-31] MEDS: POTASSIUM CHLORIDE 40 MEQ in D5%-0.9% NACL 1,000 ML IV SCH (15:45)
[2020-08-31] MEDS ORDERED: FERROUS SULFATE 220 MG/5 ML ORAL SOL PO SCH (17:00)
[2020-08-31] MEDS ORDERED: MICAFUNGIN 100 MG in SODIUM CHLORIDE 0.9% 100 ML IV SCH (18:00)
[2020-08-31 19:08] LABS: TROPONIN I 0.069 ng/mL (0.000-0.045)
[2020-08-31 20:28] VITALS: BP 123/75
[2020-08-31] MEDS: ONDANSETRON 2MG/ML, 2ML IVPush PRN (22:22)
[2020-09-01 00:27] VITALS: BP 113/69
[2020-09-01 02:30] LABS: TROPONIN I 0.046 ng/mL (0.000-0.045)
[2020-09-01] MEDS: HEPARIN 5,000 UNITS/ML, 1ML SQ SCH (02:37)
[2020-09-01] MEDS: METHADONE 10 MG TABLET PO SCH (04:42)
[2020-09-01] MEDS: POTASSIUM CHLORIDE 40 MEQ in D5%-0.9% NACL 1,000 ML IV SCH (04:42)
[2020-09-01] MEDS: PIPERACILLIN/TAZO/PMX 3.375GM 50 ML IV SCH (05:05)
[2020-09-01] MEDS: ONDANSETRON 2MG/ML, 2ML IVPush PRN (05:32)
[2020-09-01 07:48] VITALS: BP 121/74
[2020-09-01 08:03] LABS: BASOPHILS % (AUTO) 0 % (0-1); EOSINOPHILS % (AUTO) 0 % (1-7); LYMPHOCYTES % (AUTO) 10 % (22-44); MEAN CORPUSCULAR HEMOGLOBIN 22.9 pg (27.5-34.5); MEAN PLATELET VOLUME 8.3 fL (7.4-10.4); MONOCYTES % (AUTO) 6 % (2-9); NEUTROPHILS % (AUTO) 84 % (42-75); PLATELET COUNT 364 x10^3/uL (130-400); RED CELL DISTRIBUTION WIDTH 32.5 % (9.4-14.8)
[2020-09-01 08:10] LABS: ALBUMIN 1.6 g/dL (3.4-5.0); ANION GAP 7 mmol/L (5-15); CALCIUM 7.7 mg/dL (8.5-10.1); CHLORIDE 119 mmol/L (98-107)
[2020-09-01] MEDS: SENNA/DOCUSATE TABLET PO SCH (08:10)
[2020-09-01 08:18] LABS: ALANINE AMINOTRANSFERASE 45 U/L (12-78); ALKALINE PHOSPHATASE 53 U/L (45-117); BILIRUBIN,TOTAL 0.3 mg/dL (0.2-1.0); CREATININE 1.12 mg/dL (0.7-1.3); TOTAL PROTEIN 6.6 g/dL (6.4-8.2); TROPONIN I 0.046 ng/mL (0.000-0.045)
[2020-09-01 08:35] LABS: MD SCAN
[2020-09-01] MEDS ORDERED: ESOMEPRAZOLE 40 MG IV IVPush SCH (10:30)
== END 2020-09-01 09:32 | disposition left against medical advice (07) | DRG 853 ==
LOC: OR 15:06 → EDIP 16:41 → CCU 17:16 → 4WST 08-31 14:37
PROVIDERS: ADMIT Internal Medicine; ATTEND Family Medicine
PROC: 0DB60ZZ Excision of Stomach, Open Approach (ICD-10-PCS; 2020-08-28)
PROC: 30230K1 Transfusion of Nonautologous Frozen Plasma into Peripheral Vein, Open Approach (ICD-10-PCS; 2020-08-28)
PROC: 30230N1 Transfusion of Nonautologous Red Blood Cells into Peripheral Vein, Open Approach (ICD-10-PCS; 2020-08-28)
PROC: 30230R1 Transfusion of Nonautologous Platelets into Peripheral Vein, Open Approach (ICD-10-PCS; 2020-08-28)
PROC: 0BH17EZ Insertion of Endotracheal Airway into Trachea, Via Natural or Artificial Opening (ICD-10-PCS; 2020-08-28)
PROC: 5A1945Z Respiratory Ventilation, 24-96 Consecutive Hours (ICD-10-PCS; 2020-08-28)
PROC: 02HV33Z Insertion of Infusion Device into Superior Vena Cava, Percutaneous Approach (ICD-10-PCS; principal; 2020-08-28 15:30)
PROC: 0DJ60ZZ Inspection of Stomach, Open Approach (ICD-10-PCS; 2020-08-28 15:30)
PROC: 0T9B30Z Drainage of Bladder with Drainage Device, Percutaneous Approach (ICD-10-PCS; 2020-08-29)
PROC: 0J9830Z Drainage of Abdomen Subcutaneous Tissue and Fascia with Drainage Device, Percutaneous Approach (ICD-10-PCS; 2020-08-30)
DX: A40.9 Streptococcal sepsis, unspecified (principal); E43 Unspecified severe protein-calorie malnutrition; G93.41 Metabolic encephalopathy; J96.00 Acute respiratory failure, unspecified whether with hypoxia or hypercapnia; K25.5 Chronic or unspecified gastric ulcer with perforation; K65.1 Peritoneal abscess; N17.0 Acute kidney failure with tubular necrosis; R57.8 Other shock; R65.21 Severe sepsis with septic shock; E87.1 Hypo-osmolality and hyponatremia; E87.2 Acidosis; J93.9 Pneumothorax, unspecified; B19.20 Unspecified viral hepatitis C without hepatic coma; D64.9 Anemia, unspecified; F17.210 Nicotine dependence, cigarettes, uncomplicated; I95.9 Hypotension, unspecified; Z20.822 Contact with and (suspected) exposure to COVID-19; E16.2 Hypoglycemia, unspecified; E61.1 Iron deficiency; F11.10 Opioid abuse, uncomplicated; E87.6 Hypokalemia; Z90.3 Acquired absence of stomach [part of]; Z79.899 Other long term (current) drug therapy; Z79.891 Long term (current) use of opiate analgesic; Z79.01 Long term (current) use of anticoagulants
CPT/HCPCS: 36415; 36556; 36600; 74240; 83036; 87338; 87806; 99291; J7042; 71045; 74177; 80048; 80053; 80074; 80202; 81001; 82247; 82330; 82728; 82803; 82947; 82962; 83540; 83550; 83605; 83735; 84100; 84132; 84295; 84484; 85014; 85018; 85025; 85610; 85730; 86850; 86900; 86923; 87040; 87070; 87075; 87077; 87081; 87147; 87186; 87205; 87521; 87635; 88307; 93005; 94002; 94003; 94150; G0378; J1644; J2248; J2250; J2405; J2543; J2704; J3010; J3370; J3411; J3430; J3480; P9045; Q9967; C1765; C1894; C9113; G0475; J3420; J7030; J7050; J7120; P9016; P9017; P9035

== ENCOUNTER 2020-09-01 11:40 | Inpatient (IN) | payer MEDICAID ==
[~2020-09-01] VITALS: Ht 188 cm; Wt 62.4 kg
--- NOTE | 2020-09-01 12:24 | NUR ---
MD AT BEDSIDE FOR ASSESSMENT AND TO DISCUSS PLAN OF CARE
[2020-09-01] MEDS ORDERED: DEXTROSE 10%, 250ML IV ONE ×2 (12:30→13:30)
--- NOTE | 2020-09-01 12:41 | NUR ---
PT BROUGHT IN BY FAMILY MEMBER FOR WEAKNESS. FAMILY MEMBER STATES PT WAS HERE AN INPATIENT TODAY FOR "BURST ULCER" W/SURGICAL INTERVENTION ON WEDNESDAY WITH "25CM OF BOWEL REMOVED". PT STATES HE USES HEROIN AND HE WAS EXPERIENCING SYMPTOMS OF WITHDRAWL SO HE LEFT AMA, LAST USE WAS DAY OF INITIAL ARRIVAL TO THE ED, POSSIBLY LAST WEDNESDAY. ON ARRIVAL, PT WEAK, TACHYPNEIC, RIGHT LOWER QUADRANT HARDEEP DRAIN SUTURED IN PLACED BUT BULB DETACHED, MID ABD WOUND VAC IN PLACE. MONITORS CONNECTED. EKG COMPLETE. WARM BLANKETS PROVIDED. IV STARTED
--- NOTE | 2020-09-01 13:23 | NUR ---
BLOOD SUGAR ON ARRIVAL 59. PT GIVEN 3 JUICES. IV STARTED AND ORDERED D10 ADMINISTERED. BLOOD SUGAR RECHECK 51. NOTIFIED. ANOTHER 250ML BAG D10 TO BE ADMINISTERED. IR TO TAKE PT FOR PICC LINE PLACEMENT AND THEN PT. TO RM 408. REPORT GIVEN TO RAFAL WHO WAS UPDATED ON TRANSFER FOR PICC LINE FIRST AND REGARDING UPDATED BLOOD SUGAR
--- NOTE | 2020-09-01 13:35 | NUR ---
CONTACTED [facility] STATES THEY WILL BE HERE TO TRANSPORT PT IN 10 MIN AND WILL TRANSPORT PT TO RM 408 FOLLOWING PLACEMENT OF PICC. RAFAL REDDY AWARE
--- NOTE | 2020-09-01 13:38 | NUR ---
MULTIPLE ATTEMPTS FOR NEW IV PLACEMENT WITH NO AVAIL FOLLOWING INFILTRATION OF PREVIOUS IV. IR TECH AT BEDSIDE STATING IT WILL 10 MORE MINUTES FOR TRANSPORT. PT GIVEN MORE APPLE JUICE
--- NOTE | 2020-09-01 13:40 | NUR ---
BLOOD SUGAR 27 ON CHECK PRIOR TO TRANSFER TO IR FOR PICC. PT DIAPHORETIC, ALERT AND ORIENTED. PT KEPT IN ED. DR DOUGLASS MADE AWARE. DR DOUGLASS AT BEDSIDE FOR ULTRASOUND IV ATTEMPT WHILE AWAITING PICC PLACEMENT. ULTRASOUND ATTEMPT UNSUCCESSFUL. IR DOC TO COME TO BEDSIDE FOR PICC LINE PLACEMENT
[2020-09-01] MEDS ORDERED: DEXTROSE 4 GM TAB.CHEW ONE (13:57)
[2020-09-01] MEDS ORDERED: DEXTROSE 50%, 50ML SYRINGE ONE (13:58)
--- NOTE | 2020-09-01 14:10 | NUR ---
DR. URRUTIA AT BEDSIDE FOR PICC PLACEMENT. ORDERED IV MEDICATIONS ADMINISTERED THROUGH RIGHT UPPER ARM DOUBLE LUMEN PICC PER DR. GHADA MORENO.
--- NOTE | 2020-09-01 14:30 | NUR ---
RADHA SHELTON AND DR DOUGLASS AT BEDSIDE DISCUSSING ADMISSION TO CCU VS TELEMETRY. PER RADHA AND DR DOUGLASS, MONITOR PT WITH Q15 MINUTE BLOOD SUGARS FOR 1.5 HOURS AND IF STABLE TRANSFER TO TELEMETRY. CHARGE NURSE AND FLOOR RN MADE AWARE OF CHANGES
[2020-09-01] MEDS ORDERED: DEXTROSE 10% 1,000 ML IV SCH (15:00)
[2020-09-01] MEDS ORDERED: VANCOMYCIN PER PHARMACY MC PRN (15:00)
[2020-09-01] MEDS ORDERED: DEXTROSE 50%, 50ML SYRINGE IVPush ONE (15:00)
[2020-09-01] MEDS ORDERED: DEXTROSE 4 GM TAB.CHEW PO ONE (15:00)
[2020-09-01] MEDS ORDERED: MICAFUNGIN 100 MG in SODIUM CHLORIDE 0.9% 100 ML IV SCH (15:00)
--- NOTE | 2020-09-01 15:24 | NUR ---
LAB AT BEDSIDE FOR BLOOD CULTURES
[2020-09-01] MEDS ORDERED: HYDROcodone/APAP 5/325 TABLET PO PRN (15:30)
[2020-09-01] MEDS ORDERED: morphine SULFATE 10 MG/ML, 1ML IVPush PRN (15:30)
[2020-09-01] MEDS ORDERED: ACETAMINOPHEN 325 MG TABLET PO PRN (15:30)
[2020-09-01] MEDS ORDERED: LORazepam 2 MG/ML, 1ML IVPush PRN (15:30)
--- NOTE | 2020-09-01 15:32 | NUR ---
PT VOMITED 200CC CLEAR LIQUID
[2020-09-01] MEDS: METHADONE 10 MG TABLET PO SCH ×2 (15:34→21:02)
[2020-09-01] MEDS: POTASSIUM CHLORIDE 20 MEQ in DEXTROSE 10% 1,000 ML IV SCH (15:43)
[2020-09-01 15:49] LABS: HCT (SEDRATE) 30.2 % (39.2-51.8)
[2020-09-01 15:55] LABS: BASOPHILS % (AUTO) 0 % (0-1); EOSINOPHILS % (AUTO) 0 % (1-7); LYMPHOCYTES % (AUTO) 12 % (22-44); MEAN CORPUSCULAR HEMOGLOBIN 22.6 pg (27.5-34.5); MEAN CORPUSCULAR HGB CONC 31.6 g/dL (33.2-36.2); MEAN PLATELET VOLUME 8.2 fL (7.4-10.4); MONOCYTES % (AUTO) 7 % (2-9); NEUTROPHILS % (AUTO) 80 % (42-75); PLATELET COUNT 396 x10^3/uL (130-400); RED BLOOD COUNT 4.22 x10^6/uL (4.38-5.82)
[2020-09-01] MEDS ORDERED: VANCOMYCIN 1,700 MG in SODIUM CHLORIDE 0.9% 250 ML IV ONE (16:00)
[2020-09-01 16:03] LABS: ALANINE AMINOTRANSFERASE 43 U/L (12-78); ALBUMIN 1.5 g/dL (3.4-5.0); ANION GAP 6 mmol/L (5-15); CALCIUM 7.5 mg/dL (8.5-10.1); CHLORIDE 116 mmol/L (98-107); CREATININE 1.17 mg/dL (0.7-1.3)
[2020-09-01 16:10] LABS: ALKALINE PHOSPHATASE 53 U/L (45-117); BILIRUBIN,TOTAL 0.2 mg/dL (0.2-1.0); TOTAL PROTEIN 6.4 g/dL (6.4-8.2)
[2020-09-01 16:13] LABS: INTERNATIONAL NORMALIZED RATIO 1.06 (0.93-1.1); PROTHROMBIN TIME 11.2 Seconds (9.6-11.5)
--- NOTE | 2020-09-01 16:16 | NUR ---
RADHA RIVAS CONTACTED REGARDING VARYING BS. RN REPORTED BLOOD SUGAR CHECKS Q15 MINUTES VARYING FROM 146 TO 52. RN REPORTED CHANGES IN BLOOD SUGAR WITH DIFFERENT SITES ON BILATERAL HANDS. PER RADHA SALEEM STATE VENOUS BLOOD GLUCOSE
[2020-09-01 16:19] LABS: MD SCAN
--- NOTE | 2020-09-01 16:30 | NUR ---
BREAK RN: LAB AT
[2020-09-01] MEDS ORDERED: HEPARIN 5,000 UNITS/ML, 1ML ONE (16:40)
[2020-09-01] MEDS ORDERED: PIPERACILLIN/TAZO/PMX 3.375GM 50 ML ONE (16:40)
[2020-09-01] MEDS: PIPERACILLIN/TAZO/PMX 3.375GM 50 ML IV SCH (16:49)
[2020-09-01] MEDS: HEPARIN 5,000 UNITS/ML, 1ML SQ SCH (16:49)
--- NOTE | 2020-09-01 17:00 | NUR ---
PREVIOUS DOCMENTATION DELAYED DUE TO NO WORKING COMPUTER IN ROOM. A COMPUTER ON WHEEL WAS BROUGHT IN THAT DID NOT WORK WELL. A 3RD COMPUTER WAS BROUGHT IN AND CHARTING WAS COMPLETED.
--- NOTE | 2020-09-01 17:12 | NUR ---
SUMMER RN ON TELE UPDATED ON PT CARE IN ED
[2020-09-01 18:00] VITALS: BP 119/78
[2020-09-01] MEDS: LACTOBACILLUS CHEW TABLET PO SCH ×2 (18:11→21:02)
[2020-09-01] MEDS: FERROUS SULFATE 220 MG/5 ML ORAL SOL PO SCH (21:02)
[2020-09-01] MEDS: THIAMINE 100MG TABLET PO SCH (21:02)
[2020-09-01 21:03] VITALS: BP 115/73
[2020-09-01 21:11] LABS: MICROSCOPIC INDICATED
[2020-09-01 21:17] LABS: AMPHETAMINE SCREEN, URINE Negative (Negative); BARBITURATE SCREEN, URINE Negative (Negative); BENZODIAZEPINE SCREEN, URINE Negative (Negative); CANNABINOID SCREEN, URINE Positive (Negative); COCAINE SCREEN, URINE Negative (Negative); METHADONE SCREEN, URINE Positive (Negative); OPIATE SCREEN, URINE Positive (Negative)
[2020-09-01] MEDS: ONDANSETRON 2MG/ML, 2ML IVPush PRN (21:21)
[2020-09-02] MEDS: HEPARIN 5,000 UNITS/ML, 1ML SQ SCH ×4 (00:20→23:30)
[2020-09-02] MEDS: PIPERACILLIN/TAZO/PMX 3.375GM 50 ML IV SCH ×2 (01:09→09:03)
[2020-09-02 01:58] VITALS: BP 118/75
[2020-09-02] MEDS: POTASSIUM CHLORIDE 20 MEQ in DEXTROSE 10% 1,000 ML IV SCH (01:58)
[2020-09-02] MEDS: ONDANSETRON 2MG/ML, 2ML IVPush PRN ×3 (03:27→20:56)
[2020-09-02] MEDS: METHADONE 10 MG TABLET PO SCH ×4 (04:48→22:23)
[2020-09-02 05:07] LABS: ALANINE AMINOTRANSFERASE 38 U/L (12-78); ALBUMIN 1.5 g/dL (3.4-5.0); ANION GAP 6 mmol/L (5-15); CHLORIDE 113 mmol/L (98-107); CREATININE 0.75 mg/dL (0.7-1.3)
[2020-09-02 05:12] LABS: BASOPHILS % (AUTO) 0 % (0-1); EOSINOPHILS % (AUTO) 1 % (1-7); LYMPHOCYTES % (AUTO) 15 % (22-44); MEAN CORPUSCULAR HEMOGLOBIN 22.7 pg (27.5-34.5); MEAN CORPUSCULAR HGB CONC 31.3 g/dL (33.2-36.2); MEAN PLATELET VOLUME 8.3 fL (7.4-10.4); MONOCYTES % (AUTO) 7 % (2-9); NEUTROPHILS % (AUTO) 77 % (42-75); PLATELET COUNT 374 x10^3/uL (130-400); RED BLOOD COUNT 3.96 x10^6/uL (4.38-5.82); RED CELL DISTRIBUTION WIDTH 32.3 % (9.4-14.8)
[2020-09-02 05:17] LABS: ALKALINE PHOSPHATASE 45 U/L (45-117); BILIRUBIN,TOTAL 0.3 mg/dL (0.2-1.0)
[2020-09-02 05:48] LABS: MD MORPH REVIEW ONLY
[2020-09-02 05:49] LABS: <PLATELET ESTIMATE> ADEQUATE; <PLT MORPHOLOGY> NORMAL PLT MORPH; ANISOCYTOSIS 2+; HYPOCHROMIA 2+; MICROCYTOSIS 1+; POLYCHROMASIA 1+
[2020-09-02] MEDS ORDERED: VANCOMYCIN 1,400 MG in SODIUM CHLORIDE 0.9% 250 ML IV SCH (06:00)
[2020-09-02 06:53] VITALS: BP 108/66
[2020-09-02] MEDS ORDERED: MAGNESIUM SULFATE PMX 2GM/50ML 50 ML IV ONE (08:00)
[2020-09-02] MEDS ORDERED: POTASSIUM CHLORIDE 20 MEQ TAB.ER.PRT PO ONE (08:00)
[2020-09-02] MEDS: ESOMEPRAZOLE 40 MG IV IVPush SCH (09:02)
[2020-09-02] MEDS: THIAMINE 100MG TABLET PO SCH ×2 (09:03→20:51)
[2020-09-02] MEDS: LACTOBACILLUS CHEW TABLET PO SCH ×3 (09:03→20:51)
[2020-09-02] MEDS: FERROUS SULFATE 220 MG/5 ML ORAL SOL PO SCH ×2 (09:03→16:10)
[2020-09-02] MEDS: K-PHOS NEUTRAL 250MG TAB PO SCH ×2 (09:03→20:51)
[2020-09-02] MEDS ORDERED: PROMETHAZINE 25 MG/ML, 1ML IM PRN (10:00)
[2020-09-02 12:10] VITALS: BP 115/71
[2020-09-02] MEDS: CEFAZOLIN PMX 2GM/50ML 50 ML IVPB SCH ×2 (12:16→20:00)
[2020-09-02 18:48] VITALS: BP 113/74
[2020-09-02] MEDS ORDERED: GLUCAGON 1 MG IM PRN (22:30)
[2020-09-02] MEDS ORDERED: DEXTROSE 4 GM TAB.CHEW PO PRN (22:30)
[2020-09-02] MEDS: SODIUM CHLORIDE FLUSH 10ML SYR IVF SCH (22:39)
[2020-09-03] MEDS: HEPARIN 5,000 UNITS/ML, 1ML SQ SCH ×4 (00:14→23:30)
[2020-09-03 01:59] VITALS: BP 118/75
[2020-09-03] MEDS: CEFAZOLIN PMX 2GM/50ML 50 ML IVPB SCH ×3 (03:56→20:24)
[2020-09-03] MEDS: METHADONE 10 MG TABLET PO SCH ×4 (04:37→22:51)
[2020-09-03] MEDS: ONDANSETRON 2MG/ML, 2ML IVPush PRN ×3 (04:37→20:24)
[2020-09-03] MEDS: DEXTROSE 50%, 50ML SYRINGE IVPush PRN (05:24)
[2020-09-03 05:57] LABS: BASOPHILS % (AUTO) 1 % (0-1); EOSINOPHILS % (AUTO) 2 % (1-7); LYMPHOCYTES % (AUTO) 13 % (22-44); MEAN CORPUSCULAR HEMOGLOBIN 22.9 pg (27.5-34.5); MEAN CORPUSCULAR HGB CONC 31.6 g/dL (33.2-36.2); MEAN PLATELET VOLUME 8.3 fL (7.4-10.4); MONOCYTES % (AUTO) 5 % (2-9); NEUTROPHILS % (AUTO) 80 % (42-75); PLATELET COUNT 384 x10^3/uL (130-400); RED BLOOD COUNT 4.11 x10^6/uL (4.38-5.82); RED CELL DISTRIBUTION WIDTH 32.1 % (9.4-14.8)
[2020-09-03 06:12] LABS: CALCIUM 7.3 mg/dL (8.5-10.1); CHLORIDE 107 mmol/L (98-107)
[2020-09-03 06:17] LABS: ALANINE AMINOTRANSFERASE 24 U/L (12-78); ALBUMIN 1.4 g/dL (3.4-5.0); ALKALINE PHOSPHATASE 41 U/L (45-117); ANION GAP 6 mmol/L (5-15); BILIRUBIN,TOTAL 0.2 mg/dL (0.2-1.0); CREATININE 0.92 mg/dL (0.7-1.3); TOTAL PROTEIN 5.9 g/dL (6.4-8.2)
[2020-09-03 06:40] VITALS: BP 127/76
[2020-09-03 06:46] LABS: ANISOCYTOSIS 2+; HYPOCHROMIA 2+; MD MORPH REVIEW ONLY; MICROCYTOSIS 2+; POLYCHROMASIA 1+
[2020-09-03 06:47] LABS: SPHEROCYTES 1+
[2020-09-03 06:49] LABS: <PLATELET ESTIMATE> ADEQUATE; <PLT MORPHOLOGY> NORMAL PLT MORPH; OVALOCYTES 1+; TEAR DROPS 1+
[2020-09-03] MEDS ORDERED: POTASSIUM CHLORIDE 20 MEQ TAB.ER.PRT PO ONE (08:00)
[2020-09-03] MEDS ORDERED: MAGNESIUM SULFATE PMX 2GM/50ML 50 ML IV ONE (08:00)
[2020-09-03] MEDS: ESOMEPRAZOLE 40 MG IV IVPush SCH (08:04)
[2020-09-03] MEDS: THIAMINE 100MG TABLET PO SCH ×2 (08:05→20:23)
[2020-09-03] MEDS: SODIUM CHLORIDE FLUSH 10ML SYR IVF SCH ×2 (08:05→20:24)
[2020-09-03] MEDS: LACTOBACILLUS CHEW TABLET PO SCH ×3 (08:06→20:23)
[2020-09-03] MEDS: FERROUS SULFATE 220 MG/5 ML ORAL SOL PO SCH ×3 (09:22→16:17)
[2020-09-03] MEDS: D5%-0.9% NACL+KCL 20MEQ 1,000 ML IV SCH ×2 (10:04→22:51)
[2020-09-03 12:06] VITALS: BP 102/68
[2020-09-03] MEDS ORDERED: OMNIPAQUE 350 MG/ML, 75ML BOTTLE ONE (18:01)
[2020-09-03 18:56] VITALS: BP 116/73
[2020-09-04 00:18] VITALS: BP 99/62
[2020-09-04] MEDS: DEXTROSE 50%, 50ML SYRINGE IVPush PRN ×2 (04:05→10:16)
[2020-09-04] MEDS: METHADONE 10 MG TABLET PO SCH ×4 (05:02→22:19)
[2020-09-04] MEDS: CEFAZOLIN PMX 2GM/50ML 50 ML IVPB SCH ×3 (05:03→20:47)
[2020-09-04] MEDS: ONDANSETRON 2MG/ML, 2ML IVPush PRN (05:03)
[2020-09-04 05:06] LABS: BASOPHILS % (AUTO) 1 % (0-1); EOSINOPHILS % (AUTO) 1 % (1-7); LYMPHOCYTES % (AUTO) 13 % (22-44); MEAN CORPUSCULAR HEMOGLOBIN 23.1 pg (27.5-34.5); MEAN CORPUSCULAR HGB CONC 32.3 g/dL (33.2-36.2); MEAN PLATELET VOLUME 8.4 fL (7.4-10.4); MONOCYTES % (AUTO) 6 % (2-9); NEUTROPHILS % (AUTO) 79 % (42-75); PLATELET COUNT 311 x10^3/uL (130-400); RED BLOOD COUNT 4.28 x10^6/uL (4.38-5.82); RED CELL DISTRIBUTION WIDTH 32.5 % (9.4-14.8)
[2020-09-04 05:15] LABS: ANION GAP 4 mmol/L (5-15); CALCIUM 7.1 mg/dL (8.5-10.1); CHLORIDE 106 mmol/L (98-107); CREATININE 0.65 mg/dL (0.7-1.3)
[2020-09-04 06:02] LABS: MD MORPH REVIEW ONLY
[2020-09-04 06:03] LABS: ANISOCYTOSIS 2+; HYPOCHROMIA 2+; MICROCYTOSIS 2+; OVALOCYTES 1+; POLYCHROMASIA 1+
[2020-09-04 06:07] LABS: <PLATELET ESTIMATE> ADEQUATE; <PLT MORPHOLOGY> NORMAL PLT MORPH; SPHEROCYTES 1+
[2020-09-04 06:56] VITALS: BP 102/64
[2020-09-04] MEDS: ESOMEPRAZOLE 40 MG IV IVPush SCH (08:36)
[2020-09-04] MEDS: HEPARIN 5,000 UNITS/ML, 1ML SQ SCH ×4 (08:37→23:44)
[2020-09-04] MEDS: FERROUS SULFATE 220 MG/5 ML ORAL SOL PO SCH ×2 (08:37→16:32)
[2020-09-04] MEDS: LACTOBACILLUS CHEW TABLET PO SCH ×3 (08:37→20:47)
[2020-09-04] MEDS: THIAMINE 100MG TABLET PO SCH ×2 (08:37→20:46)
[2020-09-04] MEDS: SODIUM CHLORIDE FLUSH 10ML SYR IVF SCH ×2 (08:37→20:46)
[2020-09-04 12:23] VITALS: BP 111/73
[2020-09-04] MEDS ORDERED: IRON SUCROSE COMPLEX 100MG/5ML IV SCH (12:30)
[2020-09-04] MEDS ORDERED: MAGNESIUM SULFATE PMX 2GM/50ML 50 ML IV ONE (13:00)
[2020-09-04] MEDS: D5%-0.9% NACL+KCL 20MEQ 1,000 ML IV SCH (13:43)
[2020-09-04 20:13] VITALS: BP 120/81
[2020-09-04] MEDS: AMOXICILLIN 500 MG CAPSULE PO SCH (20:46)
[2020-09-04] MEDS: CLARITHROMYCIN 500 MG TABLET PO SCH (20:46)
[2020-09-04] MEDS: metroNIDAZOLE 500 MG TABLET PO SCH (20:46)
[2020-09-05 01:14] VITALS: BP 111/72
[2020-09-05] MEDS: D5%-0.9% NACL+KCL 20MEQ 1,000 ML IV SCH (03:11)
[2020-09-05] MEDS: METHADONE 10 MG TABLET PO SCH ×4 (04:16→22:27)
[2020-09-05 04:48] LABS: BASOPHILS % (AUTO) 1 % (0-1); EOSINOPHILS % (AUTO) 1 % (1-7); LYMPHOCYTES % (AUTO) 16 % (22-44); MEAN CORPUSCULAR HEMOGLOBIN 22.9 pg (27.5-34.5); MEAN CORPUSCULAR HGB CONC 32.3 g/dL (33.2-36.2); MEAN PLATELET VOLUME 8.6 fL (7.4-10.4); MONOCYTES % (AUTO) 6 % (2-9); NEUTROPHILS % (AUTO) 76 % (42-75); PLATELET COUNT 498 x10^3/uL (130-400); RED BLOOD COUNT 3.96 x10^6/uL (4.38-5.82); RED CELL DISTRIBUTION WIDTH 32.3 % (9.4-14.8)
[2020-09-05 05:00] LABS: ANION GAP 5 mmol/L (5-15); CALCIUM 6.8 mg/dL (8.5-10.1); CHLORIDE 104 mmol/L (98-107); CREATININE 0.64 mg/dL (0.7-1.3)
[2020-09-05] MEDS: CEFAZOLIN PMX 2GM/50ML 50 ML IVPB SCH ×3 (05:05→20:33)
[2020-09-05 05:20] LABS: MD MORPH REVIEW ONLY
[2020-09-05 05:21] LABS: ANISOCYTOSIS 2+; HYPOCHROMIA 2+; MICROCYTOSIS 1+
[2020-09-05 05:22] LABS: <PLATELET ESTIMATE> INCREASED; <PLT MORPHOLOGY> NORMAL PLT MORPH; OVALOCYTES 1+; POLYCHROMASIA 2+; SPHEROCYTES 1+
[2020-09-05 07:45] VITALS: BP 122/76
[2020-09-05] MEDS: HEPARIN 5,000 UNITS/ML, 1ML SQ SCH ×3 (07:55→22:27)
[2020-09-05] MEDS: ESOMEPRAZOLE 40 MG IV IVPush SCH (07:56)
[2020-09-05] MEDS: LACTOBACILLUS CHEW TABLET PO SCH ×3 (07:56→20:34)
[2020-09-05] MEDS: IRON SUCROSE COMPLEX 100MG/5ML IV SCH (07:56)
[2020-09-05] MEDS: metroNIDAZOLE 500 MG TABLET PO SCH ×2 (07:56→20:34)
[2020-09-05] MEDS: AMOXICILLIN 500 MG CAPSULE PO SCH ×2 (07:56→20:34)
[2020-09-05] MEDS: CLARITHROMYCIN 500 MG TABLET PO SCH ×2 (07:56→20:34)
[2020-09-05] MEDS: THIAMINE 100MG TABLET PO SCH ×2 (07:57→20:34)
[2020-09-05] MEDS: FERROUS SULFATE 220 MG/5 ML ORAL SOL PO SCH ×3 (07:57→17:00)
[2020-09-05] MEDS: SODIUM CHLORIDE FLUSH 10ML SYR IVF SCH ×2 (08:04→21:00)
[2020-09-05 12:41] VITALS: BP 118/81
[2020-09-05] MEDS ORDERED: MAGNESIUM SULFATE PMX 2GM/50ML 50 ML IV ONE (13:30)
[2020-09-05] MEDS ORDERED: CALCIUM CARBONATE 500 MG TAB.CHEW PO PRN (13:30)
[2020-09-05] MEDS ORDERED: POTASSIUM PHOSPHATE 44 MEQ in SODIUM CHLORIDE 0.9% 500 ML IV ONE (14:00)
[2020-09-05 19:42] VITALS: BP 98/67
[2020-09-06 02:11] VITALS: BP 100/63
[2020-09-06] MEDS: D5%-0.9% NACL+KCL 20MEQ 1,000 ML IV SCH ×2 (02:11→15:57)
[2020-09-06] MEDS: DEXTROSE 50%, 50ML SYRINGE IVPush PRN (03:54)
[2020-09-06] MEDS: METHADONE 10 MG TABLET PO SCH ×4 (04:38→22:54)
[2020-09-06] MEDS: CEFAZOLIN PMX 2GM/50ML 50 ML IVPB SCH ×3 (04:38→20:51)
[2020-09-06 04:50] LABS: BASOPHILS % (AUTO) 2 % (0-1); EOSINOPHILS % (AUTO) 1 % (1-7); LYMPHOCYTES % (AUTO) 18 % (22-44); MEAN CORPUSCULAR HEMOGLOBIN 22.9 pg (27.5-34.5); MEAN CORPUSCULAR HGB CONC 31.8 g/dL (33.2-36.2); MEAN PLATELET VOLUME 8.5 fL (7.4-10.4); MONOCYTES % (AUTO) 6 % (2-9); NEUTROPHILS % (AUTO) 74 % (42-75); PLATELET COUNT 607 x10^3/uL (130-400); RED BLOOD COUNT 3.95 x10^6/uL (4.38-5.82); RED CELL DISTRIBUTION WIDTH 32.8 % (9.4-14.8)
[2020-09-06 05:02] LABS: ANION GAP 5 mmol/L (5-15); CALCIUM 7.3 mg/dL (8.5-10.1); CHLORIDE 105 mmol/L (98-107)
[2020-09-06 05:03] LABS: CREATININE 0.65 mg/dL (0.7-1.3)
[2020-09-06 06:10] LABS: MD MORPH REVIEW ONLY
[2020-09-06 06:12] LABS: ANISOCYTOSIS 2+; HYPOCHROMIA 2+; MICROCYTOSIS 1+
[2020-09-06 06:13] LABS: SCHISTOCYTES 1+
[2020-09-06 06:14] LABS: TEAR DROPS 1+
[2020-09-06 06:15] LABS: <PLATELET ESTIMATE> INCREASED; <PLT MORPHOLOGY> NORMAL PLT MORPH; OVALOCYTES 1+
[2020-09-06 07:39] VITALS: BP 120/79
[2020-09-06] MEDS: ESOMEPRAZOLE 40 MG IV IVPush SCH (07:56)
[2020-09-06] MEDS: FERROUS SULFATE 220 MG/5 ML ORAL SOL PO SCH ×2 (07:56→17:16)
[2020-09-06] MEDS: IRON SUCROSE COMPLEX 100MG/5ML IV SCH (07:56)
[2020-09-06] MEDS: metroNIDAZOLE 500 MG TABLET PO SCH ×2 (07:56→20:51)
[2020-09-06] MEDS: AMOXICILLIN 500 MG CAPSULE PO SCH ×2 (07:56→20:51)
[2020-09-06] MEDS: SODIUM CHLORIDE FLUSH 10ML SYR IVF SCH ×2 (07:57→20:51)
[2020-09-06] MEDS: THIAMINE 100MG TABLET PO SCH ×2 (07:57→20:51)
[2020-09-06] MEDS: CLARITHROMYCIN 500 MG TABLET PO SCH ×2 (07:57→20:51)
[2020-09-06] MEDS: LACTOBACILLUS CHEW TABLET PO SCH ×3 (07:57→20:51)
[2020-09-06] MEDS: HEPARIN 5,000 UNITS/ML, 1ML SQ SCH ×3 (07:57→17:16)
[2020-09-06 12:37] VITALS: BP 114/76
[2020-09-06 19:30] VITALS: BP 104/56
[2020-09-07] MEDS: HEPARIN 5,000 UNITS/ML, 1ML SQ SCH ×4 (00:58→21:09)
[2020-09-07 01:04] VITALS: BP 123/67
[2020-09-07] MEDS: CEFAZOLIN PMX 2GM/50ML 50 ML IVPB SCH ×3 (04:49→21:04)
[2020-09-07] MEDS: METHADONE 10 MG TABLET PO SCH ×4 (04:49→22:12)
[2020-09-07] MEDS: D5%-0.9% NACL+KCL 20MEQ 1,000 ML IV SCH (04:55)
[2020-09-07] MEDS: DEXTROSE 50%, 50ML SYRINGE IVPush PRN (04:55)
[2020-09-07 07:49] VITALS: BP 111/73
[2020-09-07] MEDS: FERROUS SULFATE 220 MG/5 ML ORAL SOL PO SCH ×2 (08:00→16:55)
[2020-09-07] MEDS: ESOMEPRAZOLE 40 MG IV IVPush SCH (09:13)
[2020-09-07] MEDS: metroNIDAZOLE 500 MG TABLET PO SCH ×2 (09:14→20:15)
[2020-09-07] MEDS: IRON SUCROSE COMPLEX 100MG/5ML IV SCH (09:14)
[2020-09-07] MEDS: AMOXICILLIN 500 MG CAPSULE PO SCH ×2 (09:14→20:15)
[2020-09-07] MEDS: CLARITHROMYCIN 500 MG TABLET PO SCH ×2 (09:15→20:15)
[2020-09-07] MEDS: SODIUM CHLORIDE FLUSH 10ML SYR IVF SCH ×2 (09:15→20:16)
[2020-09-07] MEDS: THIAMINE 100MG TABLET PO SCH ×2 (09:15→20:15)
[2020-09-07] MEDS: LACTOBACILLUS CHEW TABLET PO SCH ×3 (09:15→20:15)
[2020-09-07 10:06] LABS: BASOPHILS % (AUTO) 1 % (0-1); EOSINOPHILS % (AUTO) 1 % (1-7); LYMPHOCYTES % (AUTO) 20 % (22-44); MEAN CORPUSCULAR HEMOGLOBIN 22.9 pg (27.5-34.5); MEAN CORPUSCULAR HGB CONC 31.4 g/dL (33.2-36.2); MEAN PLATELET VOLUME 7.5 fL (7.4-10.4); MONOCYTES % (AUTO) 7 % (2-9); NEUTROPHILS % (AUTO) 72 % (42-75); PLATELET COUNT 650 x10^3/uL (130-400); RED BLOOD COUNT 3.73 x10^6/uL (4.38-5.82); RED CELL DISTRIBUTION WIDTH 32.5 % (9.4-14.8)
[2020-09-07 10:15] LABS: ALANINE AMINOTRANSFERASE 14 U/L (12-78); ALBUMIN 1.4 g/dL (3.4-5.0); CALCIUM 6.5 mg/dL (8.5-10.1); CREATININE 0.78 mg/dL (0.7-1.3)
[2020-09-07 10:21] LABS: ALKALINE PHOSPHATASE 42 U/L (45-117); BILIRUBIN,TOTAL 0.1 mg/dL (0.2-1.0)
[2020-09-07 10:29] LABS: HYPOCHROMIA 2+; MD MORPH REVIEW ONLY; OVALOCYTES 1+; POLYCHROMASIA 1+; SCHISTOCYTES 1+; TEAR DROPS 1+
[2020-09-07 10:30] LABS: <PLATELET ESTIMATE> INCREASED; <PLT MORPHOLOGY> NORMAL PLT MORPH; ANISOCYTOSIS 2+; MICROCYTOSIS 2+; SPHEROCYTES 1+
[2020-09-07 10:32] LABS: ANION GAP 5 mmol/L (5-15); CHLORIDE 110 mmol/L (98-107)
[2020-09-07 13:05] VITALS: BP 103/63
[2020-09-07] MEDS ORDERED: SODIUM PHOSPHATE 20 MMOL in SODIUM CHLORIDE 0.9% 500 ML IV ONE (14:30)
[2020-09-07] MEDS ORDERED: MAGNESIUM SULFATE PMX 4GM/100M 100 ML IVPB ONE (14:30)
[2020-09-07 21:30] VITALS: BP 103/64
[2020-09-08 02:00] VITALS: BP 101/64
[2020-09-08] MEDS: CEFAZOLIN PMX 2GM/50ML 50 ML IVPB SCH ×3 (04:43→20:34)
[2020-09-08] MEDS: METHADONE 10 MG TABLET PO SCH ×4 (04:43→22:42)
[2020-09-08 05:10] LABS: BASOPHILS % (AUTO) 1 % (0-1); EOSINOPHILS % (AUTO) 1 % (1-7); LYMPHOCYTES % (AUTO) 23 % (22-44); MEAN CORPUSCULAR HEMOGLOBIN 23.4 pg (27.5-34.5); MEAN CORPUSCULAR HGB CONC 32.3 g/dL (33.2-36.2); MEAN PLATELET VOLUME 7.2 fL (7.4-10.4); MONOCYTES % (AUTO) 8 % (2-9); NEUTROPHILS % (AUTO) 68 % (42-75); PLATELET COUNT 693 x10^3/uL (130-400); RED BLOOD COUNT 3.49 x10^6/uL (4.38-5.82); RED CELL DISTRIBUTION WIDTH 32.6 % (9.4-14.8)
[2020-09-08 05:26] LABS: ANION GAP 4 mmol/L (5-15); CALCIUM 6.3 mg/dL (8.5-10.1); CHLORIDE 110 mmol/L (98-107); CREATININE 0.59 mg/dL (0.7-1.3)
[2020-09-08 05:54] LABS: MD SCAN
[2020-09-08] MEDS ORDERED: POTASSIUM PHOSPHATE 44 MEQ in SODIUM CHLORIDE 0.9% 500 ML IV ONE (07:00)
[2020-09-08] MEDS ORDERED: MAGNESIUM SULFATE PMX 2GM/50ML 50 ML IV ONE (07:00)
[2020-09-08 08:27] VITALS: BP 186/49
[2020-09-08] MEDS: IRON SUCROSE COMPLEX 100MG/5ML IV SCH (09:03)
[2020-09-08] MEDS: ESOMEPRAZOLE 40 MG IV IVPush SCH (09:03)
[2020-09-08] MEDS: HEPARIN 5,000 UNITS/ML, 1ML SQ SCH ×2 (09:04→16:34)
[2020-09-08] MEDS: LACTOBACILLUS CHEW TABLET PO SCH ×3 (09:04→20:31)
[2020-09-08] MEDS: CLARITHROMYCIN 500 MG TABLET PO SCH ×2 (09:04→20:30)
[2020-09-08] MEDS: CALCIUM CARBONATE 500 MG TAB.CHEW PO SCH ×2 (09:04→20:32)
[2020-09-08] MEDS: metroNIDAZOLE 500 MG TABLET PO SCH ×2 (09:04→20:31)
[2020-09-08] MEDS: POTASSIUM CHLORIDE 20 MEQ TAB.ER.PRT PO SCH ×2 (09:04→16:34)
[2020-09-08] MEDS: AMOXICILLIN 500 MG CAPSULE PO SCH ×2 (09:04→20:31)
[2020-09-08] MEDS: THIAMINE 100MG TABLET PO SCH ×2 (09:04→20:31)
[2020-09-08] MEDS: SODIUM CHLORIDE FLUSH 10ML SYR IVF SCH ×2 (09:05→20:34)
[2020-09-08] MEDS: FERROUS SULFATE 220 MG/5 ML ORAL SOL PO SCH ×2 (09:05→16:34)
[2020-09-08 13:33] VITALS: BP 107/65
[2020-09-08 20:07] VITALS: BP 97/58
[2020-09-09] MEDS: HEPARIN 5,000 UNITS/ML, 1ML SQ SCH ×3 (00:40→15:44)
[2020-09-09 00:42] VITALS: BP 96/59
[2020-09-09 05:02] LABS: BASOPHILS % (AUTO) 1 % (0-1); EOSINOPHILS % (AUTO) 0 % (1-7); LYMPHOCYTES % (AUTO) 21 % (22-44); MEAN CORPUSCULAR HEMOGLOBIN 23.5 pg (27.5-34.5); MEAN CORPUSCULAR HGB CONC 32.3 g/dL (33.2-36.2); MEAN PLATELET VOLUME 7.2 fL (7.4-10.4); MONOCYTES % (AUTO) 8 % (2-9); NEUTROPHILS % (AUTO) 70 % (42-75); PLATELET COUNT 802 x10^3/uL (130-400); RED BLOOD COUNT 3.82 x10^6/uL (4.38-5.82); RED CELL DISTRIBUTION WIDTH 32.8 % (9.4-14.8)
[2020-09-09 05:07] LABS: ANION GAP 2 mmol/L (5-15); CALCIUM 7.5 mg/dL (8.5-10.1); CHLORIDE 105 mmol/L (98-107); CREATININE 0.63 mg/dL (0.7-1.3)
[2020-09-09] MEDS: CEFAZOLIN PMX 2GM/50ML 50 ML IVPB SCH ×3 (05:10→22:07)
[2020-09-09] MEDS: METHADONE 10 MG TABLET PO SCH ×4 (05:12→22:03)
[2020-09-09 06:01] LABS: MD SCAN
[2020-09-09 06:06] LABS: HCT (SEDRATE) 27.7 % (39.2-51.8)
[2020-09-09 06:45] VITALS: BP 97/59
[2020-09-09] MEDS ORDERED: MAGNESIUM SULFATE PMX 2GM/50ML 50 ML IV ONE (08:00)
[2020-09-09] MEDS ORDERED: POTASSIUM PHOSPHATE 44 MEQ in SODIUM CHLORIDE 0.9% 500 ML IV ONE (08:00)
[2020-09-09] MEDS: FERROUS SULFATE 220 MG/5 ML ORAL SOL PO SCH ×3 (08:00→15:43)
[2020-09-09] MEDS: ESOMEPRAZOLE 40 MG IV IVPush SCH (08:49)
[2020-09-09] MEDS: CALCIUM CARBONATE 500 MG TAB.CHEW PO SCH ×2 (08:51→22:06)
[2020-09-09] MEDS: CLARITHROMYCIN 500 MG TABLET PO SCH ×2 (08:51→22:03)
[2020-09-09] MEDS: THIAMINE 100MG TABLET PO SCH ×2 (08:51→22:03)
[2020-09-09] MEDS: metroNIDAZOLE 500 MG TABLET PO SCH ×2 (08:51→22:03)
[2020-09-09] MEDS: AMOXICILLIN 500 MG CAPSULE PO SCH ×2 (08:51→22:03)
[2020-09-09] MEDS: LACTOBACILLUS CHEW TABLET PO SCH ×3 (08:51→22:03)
[2020-09-09] MEDS: SODIUM CHLORIDE FLUSH 10ML SYR IVF SCH ×2 (08:53→22:06)
[2020-09-09 13:42] VITALS: BP 101/59
[2020-09-09 19:02] VITALS: BP 96/58
[2020-09-10 00:57] VITALS: BP 94/52
[2020-09-10] MEDS: HEPARIN 5,000 UNITS/ML, 1ML SQ SCH ×3 (01:00→17:00)
[2020-09-10] MEDS: METHADONE 10 MG TABLET PO SCH ×3 (05:17→17:26)
[2020-09-10] MEDS: CEFAZOLIN PMX 2GM/50ML 50 ML IVPB SCH ×2 (05:18→12:30)
[2020-09-10 07:37] VITALS: BP 101/58
[2020-09-10] MEDS: FERROUS SULFATE 220 MG/5 ML ORAL SOL PO SCH ×3 (08:00→17:00)
[2020-09-10] MEDS: SODIUM CHLORIDE FLUSH 10ML SYR IVF SCH (09:00)
[2020-09-10] MEDS: CLARITHROMYCIN 500 MG TABLET PO SCH (10:23)
[2020-09-10] MEDS: ESOMEPRAZOLE 40 MG IV IVPush SCH (10:23)
[2020-09-10] MEDS: THIAMINE 100MG TABLET PO SCH (10:23)
[2020-09-10] MEDS: LACTOBACILLUS CHEW TABLET PO SCH ×2 (10:24→17:26)
[2020-09-10] MEDS: metroNIDAZOLE 500 MG TABLET PO SCH (10:24)
[2020-09-10] MEDS: AMOXICILLIN 500 MG CAPSULE PO SCH (10:24)
[2020-09-10] MEDS: CALCIUM CARBONATE 500 MG TAB.CHEW PO SCH (10:24)
[2020-09-10 11:34] LABS: MEAN CORPUSCULAR HEMOGLOBIN 23.3 pg (27.5-34.5); MEAN CORPUSCULAR HGB CONC 31.5 g/dL (33.2-36.2); MEAN PLATELET VOLUME 6.7 fL (7.4-10.4); PLATELET COUNT 791 x10^3/uL (130-400); RED CELL DISTRIBUTION WIDTH 33.3 % (9.4-14.8)
[2020-09-10 11:45] LABS: ANION GAP 4 mmol/L (5-15); CALCIUM 7.5 mg/dL (8.5-10.1); CHLORIDE 106 mmol/L (98-107)
[2020-09-10 11:55] LABS: MD YES
[2020-09-10 11:59] LABS: ANISOCYTOSIS 1+; BAND#(MANUAL) 0.11 x10^3/uL; BANDS%(MANUAL) 1 % (0-7); HYPOCHROMIA 1+; LYMPH#(MANUAL) 1.46 x10^3/uL (1-3.4); LYMPHS% (MANUAL) 13 % (22-44); MICROCYTOSIS 1+; MONOS#(MANUAL) 0.67 x10^3/uL (0.3-2.7); MONOS% (MANUAL) 6 % (2-9); SEG#(MANUAL) 8.96 x10^3/uL (1.8-6.8); SEGS% (MANUAL) 80 % (42-75)
[2020-09-10 12:00] LABS: OVALOCYTES 1+; TEAR DROPS 1+
[2020-09-10 12:01] LABS: <PLATELET ESTIMATE> INCREASED; <PLT MORPHOLOGY> NORMAL PLT MORPH; POLYCHROMASIA 1+
[2020-09-10] MEDS ORDERED: METR500T PO (15:52)
[2020-09-10] MEDS ORDERED: METH10TA2 PO (15:52)
[2020-09-10] MEDS ORDERED: CLAR-14 PO (15:52)
[2020-09-10] MEDS ORDERED: AMOX-291 PO (15:52)
[2020-09-10] MEDS ORDERED: ACET325T26 PO (15:52)
[2020-09-10] MEDS ORDERED: ACID1TAB7 PO (15:52)
[2020-09-10] MEDS ORDERED: FERR220E PO (15:52)
[2020-09-10] MEDS ORDERED: THIA100T67 PO (15:52)
[2020-09-10] MEDS ORDERED: ESOM40CA PO (15:52)
== END 2020-09-10 17:50 | disposition home or self-care (01) | DRG 871 ==
LOC: ED 12:15 → EDIP 12:21 → ED 12:39 → 4WST 17:17
PROVIDERS: ADMIT Family Medicine; ATTEND Family Medicine
PROC: 02HV33Z Insertion of Infusion Device into Superior Vena Cava, Percutaneous Approach (ICD-10-PCS; principal; 2020-09-01)
PROC: B548ZZA Ultrasonography of Superior Vena Cava, Guidance (ICD-10-PCS; 2020-09-01)
PROC: 5A0935A Assistance with Respiratory Ventilation, Less than 24 Consecutive Hours, High Flow/Velocity Cannula (ICD-10-PCS; 2020-09-03)
DX: A40.9 Streptococcal sepsis, unspecified (principal); E43 Unspecified severe protein-calorie malnutrition; N17.0 Acute kidney failure with tubular necrosis; K65.1 Peritoneal abscess; K25.5 Chronic or unspecified gastric ulcer with perforation; J96.01 Acute respiratory failure with hypoxia; J18.9 Pneumonia, unspecified organism; G93.41 Metabolic encephalopathy; K66.1 Hemoperitoneum; D62 Acute posthemorrhagic anemia; J90 Pleural effusion, not elsewhere classified; E87.0 Hyperosmolality and hypernatremia; Z99.11 Dependence on respirator [ventilator] status; Z68.1 Body mass index [BMI] 19.9 or less, adult; K29.70 Gastritis, unspecified, without bleeding; F17.210 Nicotine dependence, cigarettes, uncomplicated; F12.10 Cannabis abuse, uncomplicated; F11.10 Opioid abuse, uncomplicated; E87.6 Hypokalemia; E83.39 Other disorders of phosphorus metabolism; D50.9 Iron deficiency anemia, unspecified; E83.42 Hypomagnesemia; B19.20 Unspecified viral hepatitis C without hepatic coma; E16.2 Hypoglycemia, unspecified; Z90.3 Acquired absence of stomach [part of]; Z79.899 Other long term (current) drug therapy
CPT/HCPCS: 36573; 71045; 71260; 80048; 80053; 80307; 81001; 82947; 82962; 83605; 83735; 84100; 84145; 84443; 85025; 85610; 85651; 86140; 87040; 87338; 93005; 93306; 93356; 96374; 96375; 96376; 99291; G0378; J0690; J1644; J1756; J2248; J2405; J2543; J3370; J3480; Q9967; C1751; J3475; J7040; J7050

== ENCOUNTER 2021-01-31 03:42 | Emergency (ER) | payer MEDICAID ==
[~2021-01-31] VITALS: Ht 188 cm; Wt 80.0 kg
[~2021-01-31 03:42] MED LIST changes: +ACET325T26 PO; +ACID1TAB7 PO; +ESOM40CA PO; +FERR220E PO; -FOLI-17 PO; +FOLI1TAB32 PO; +METH10TA2 PO; +METR500T PO
[2021-01-31 03:43] VITALS: BP 106/65
--- NOTE | 2021-01-31 05:04 | NUR ---
6 BECKI REMOVED FROM WELL HEALED INCISON ON ABDOMEN PER ERP ORDER. PT TOELRATED WELL. NO ADDITIONAL NEEDS AT THIS TIME. AWAITING D/C
--- NOTE | 2021-01-31 05:10 | NUR ---
Patient given discharge instructions and they have confirmed that they understand the instructions. Patient ambulatory with steady gait.
== END 2021-01-31 05:12 | disposition home or self-care (01) ==
LOC: ED 05:10
DX: S31.119D Laceration without foreign body of abdominal wall, unspecified quadrant without penetration into peritoneal cavity, subsequent encounter (principal); X58.XXXD Exposure to other specified factors, subsequent encounter
CPT/HCPCS: 99281